=== PATIENT | female | born 1990 | race Caucasian/White ===

== ENCOUNTER → 2020-07-11 12:45 | Outpatient (CLI) | payer OTHER, SELFPAY ==
[2020-07-11 13:22] LABS: Add Manual Diff / Slide Review NO; Basophils Absolute Auto 0 /uL (0-100); Basophils Percent Auto 0.4 % (0-2); Eosinophils Absolute Auto 100 /uL (0-450); Eosinophils Percent Auto 2.2 % (2-4); Hematocrit 36.2 % (36-46); Lymphocytes Absolute Auto 2000 /uL (1100-4500); Lymphocytes Percent Auto 34.6 % (25-40); Mean Corpuscular Hemoglobin 28.9 PG (26-34); Mean Corpuscular Volume 87.5 fL (80-100); Monocytes Absolute Auto 300 /uL (0-900); Monocytes Percent Auto 5.1 % (3-14); Neutrophils Absolute Auto 3300 /uL (1500-7000); Neutrophils Percent Auto 57.7 % (50-75); Platelet Count 231 X10^3/uL (150-400); Red Blood Cell Count 4.13 X10^6/uL (4.0-5.2); Red Cell Distribution Width 12.9 % (11.6-14.8); White Blood Cell Count 5.8 X10^3/uL (4.5-11.0)
[2020-07-11 14:01] LABS: HEMOLYSIS < 15 (0-50); Iron 64 ug/dL (37-170)
[2020-07-11 14:08] LABS: Alanine Aminotransferase 11 IU/L (<35); Albumin 4.5 g/dL (3.5-5.0); Albumin Globulin Ratio 1.8 (1.0-2.8); Alkaline Phosphatase 45 U/L (38-126); Aspartate Aminotransferase 21 IU/L (14-36); BUN Creatinine Ratio 14.8 (6-22); Bilirubin Total 0.7 mg/dL (0.2-1.3); Blood Urea Nitrogen 19 mg/dL (7-17); Calcium 9.1 mg/dL (8.4-10.2); Carbon Dioxide 25 mmol/L (22-32); Chloride 104 mmol/L (98-107); Estimated Glomerular Filt Rate 48.3 mL/min (>60); Globulin 2.5 g/dL (1.7-4.1); Glucose 88 mg/dL (70-100); HEMOLYSIS < 15 (0-50); Potassium 3.9 mmol/L (3.4-5.1); Sodium 138 mmol/L (137-145)
[2020-07-11 14:13] LABS: Percent Iron Saturation 21 % (15-50); Total Iron Binding Capacity 304 ug/dL (265-497); Transferrin 228 mg/dL (206-381)
[2020-07-11 14:36] LABS: TSH w/ Reflex to FT4 1.04 uIU/mL (0.47-4.68)
[2020-07-11 15:04] LABS: Vitamin D 25 Hydroxy (D3) 35.9 ng/mL (30.0-100.0)
== END ==
PROVIDERS: PCP Family Medicine; Referring Provider Family Medicine; Visit Provider Family Medicine
DX: H53.9 Unspecified visual disturbance (principal); R00.0 Tachycardia, unspecified; R00.1 Bradycardia, unspecified; R53.83 Other fatigue; Z86.2 Personal history of diseases of the blood and blood-forming organs and certain disorders involving the immune mechanism
CPT/HCPCS: 36415; 80053; 82306; 83540; 83550; 84443; 85025

== ENCOUNTER 2020-07-13 14:50 | Emergency (ER) | payer OTHER, SELFPAY ==
[2020-07-13 14:53] VITALS: BP 102/71; PULSE 74; RESP 20; TEMP 36.4; O2SAT 100
[2020-07-13 17:04] VITALS: PULSE 50; O2SAT 100
[2020-07-13] MEDS: SODIUM CHLORIDE 0.9% 1,000 ML 1000 ML IV (17:08)
--- NOTE | 2020-07-13 17:12 | ED_ITS ---
HPI - Recheck/Abnormal Lab/Rx <MARYLU Vega - Last Filed: 07/14/20 00:08> General Chief Complaint: Recheck/Abnormal Lab/Rx Stated Complaint: kidney issues Time Seen by Provider: 07/13/20 16:43 Source: patient Mode of arrival: Ambulatory Limitations: no limitations History of Present Illness HPI narrative: This is a 30 year female, nonsmoker, who has history of AV jose miguel reentry tachycardia presents to ED with chief complain of not feeling well for last 2 weeks. Patient reports she had cross country travel from [place] to [place] about a month ago with her family for relocation. She has been having persistent headaches not effectively managed with taking Tylenol, nausea without vomiting, feeling sweaty, leg muscle discomfort, decreased urine output despite she drinks about 100 oz of water daily. Patient denies fever, chills, other urinary symptoms such as urgency, frequency, dysuria. Patient voids about 3 times a day with normal amount. Patient also reports feeling bloated in her abdomen and some discomfort in bilateral lateral abdomen, light sensitivity. Patient also noticed increase in swelling in her fingers and difficulty in removing a ring. She had set up primary care physician with Dr. Grey and requested blood test due to ongoing symptoms and was informed kidney issues possibly from dehydration. Patient recently feels more frequent palpitations and had about 30 minutes duration of chest discomfort in the center about a week ago. Patient denies fainting symptoms or syncope. Patient denies known exposure to COVID-19 illness. Patient is in process of finding cytometry technologist for existing cardiac conditions. Patient had unsuccessful cardiac ablation surgery in the past and usually has been experiencing bradycardia with slight hypotension and is not currently taking medications. Related Data Home Medications Medication Instructions Recorded Confirmed No Known Home Medications 07/14/20 07/14/20 Allergies Allergy/AdvReac Type Severity Reaction Status Date / Time amoxicillin [From Augmentin] Allergy Rash Verified 07/14/20 12:02 clavulanic acid Allergy Rash Verified 07/14/20 12:02 [From Augmentin] Review of Systems <MARYLU Vega - Last Filed: 07/14/20 00:08> Review of Systems Narrative: General: Denies fever, chills, fatigue, malaise, sweats. HEENT: Denies sinus pain, ear pain, sore throat, difficulty swallowing, dizziness. Respiratory: Denies dyspnea, cough, wheezing, hemoptysis, sputum. Cardiovascular: See HPI Gastrointestinal: See HPI : See HPI Musculoskeletal: Denies weakness, joint pain or bony pain. Skin: Denies rash, skin lesions, or other. Neurologic: Denies weakness, headache, numbness, change in speech, confusion, seizures, incoordination. Psychiatric: No concerning psychosocial issues. 12-point review of systems is negative except for those stated above. Patient History <MARYLU Vega - Last Filed: 07/14/20 00:08> Medical History (Updated 07/14/20 @ 00:02 by MARYLU Vega) AVNRT (AV jose miguel re-entry tachycardia) (Acute) Bradycardia (Acute) Preeclampsia (Acute) Surgical History (Updated 07/14/20 @ 00:02 by MARYLU Vega) History of cardiac radiofrequency ablation (Acute) Social History marital status: household members: spouse and children (3 BOYS ) Smoking Status: Never smoker alcohol intake: current (ON OCCASION ) substance use type: does not use Smoking Status: Never smoker Substance Use Type: does not use Exam <MARYLU Vega - Last Filed: 07/14/20 00:08> Narrative Exam Narrative: GEN: Alert, oriented x 3, well appearing and nourished, and in no acute distress. Head: Normal cephalic, atraumatic. No scalp or temporal tenderness, palpable mass or rash. EYES: Pupils are equal, round, and reactive to light and accommodation. Extraocular muscles are intact bilaterally. There is no subconjunctival hemorr w[place], exudate and sclera non-icteric. ENT: Hearing grossly intact. Nose without bleeding, purulent discharge or deviation. Facial sinuses nontender to palpate. Mucous membrane moist, no mucosal lesion. Throat without erythema, tonsillar hypertrophy or exudate. Uvula in midline, airway patent. Neck: Trachea in midline. No JVD, non-tender without lymphadenopathy. No masses or thyroid megaly. Supple, non-tender and no meningeal signs. CARDIAC: Normal regular Willi rate and rhythm without murmurs, gallops, or rubs. No chest wall tenderness. No peripheral edema, cyanosis or pallor. Capillary refill is less than 2 seconds. RESPIRATORY: Lungs are clear to auscultate bilaterally. No cough, wheezes, rales, or rhonchi. No stridor, respiratory distress, increase work of breathing, or accessary muscle used. ABD: Abdomen soft, nontender and non-distended. No guarding or rebound t enderness to palpate. Bowel sounds are normal in all 4 quadrants. There is no palpable masses or organomegaly. EXT: Full painless ROM of all extremities with no loss of sensation, strength, effusion or edema. SKIN: Warm, dry, normal color for patient. No erythema, lesions or rash over visible areas. BACK: Nontender without deformity or crepitance. No flank tenderness. NEUROLOGICAL: Alert and oriented to place, time and person. Sensation and motor function intact bilaterally. No facial droops, dysphasia. PSYCHIATRIC: Good judgement and reason, without hallucinations, abnormal affect or abnormal behaviors during the examination. Patient is not suicidal. Initial Vital Signs Initial Vital Signs: Vital Signs Temperature 97.5 F L 07/13/20 14:53 Pulse Rate 74 07/13/20 14:53 Respiratory Rate 07/13/20 14:53 Blood Pressure 102/71 07/13/20 14:53 Pulse Oximetry 100 07/13/20 14:53 <Mat Shore MD - Last Filed: 07/19/20 03:50> Initial Vital Signs Initial Vital Signs: Vital Signs Temperature 97.5 F L 07/13/20 14:53 Pulse Rate 74 07/13/20 14:53 Respiratory Rate 07/13/20 14:53 Blood Pressure 102/71 07/13/20 14:53 Pulse Oximetry 100 07/13/20 14:53 Scores <MARYLU Vega - Last Filed: 07/14/20 00:08> GCS [place] coma scale eye opening: Spontaneous [place] coma scale verbal response: Orientated Siri coma scale motor response: Obey commands Siri coma scale total score: 15 Course <MARYLU Vega - Last Filed: 07/14/20 00:08> Orders Ordered: Discontinued Medications Sodium Chloride (Normal Saline 0.9%) 1,000 mls @ 1,000 mls/hr IV BOLUS ONE Stop: 07/13/20 17:37 Last Infusion: 07/13/20 18:21 Dose: 0 mls/hr Documented by: Admin: 07/13/20 17:08 Dose: 1,000 mls/hr Documented by: DIOR Ketorolac Tromethamine (Toradol) 15 mg IV NOW ONE Stop: 07/13/20 17:46 Last Admin: 07/13/20 17:52 Dose: 15 mg Documented by: DIOR Ondansetron HCl (Zofran) 4 mg IV NOW ONE Stop: 07/13/20 17:46 Last Admin: 07/13/20 17:52 Dose: 4 mg Documented by: DIOR Vital Signs Vital signs: Vital Signs - 8 hr 07/13/20 17:04 07/13/20 17:15 07/13/20 17:30 Pulse Rate 50 L 50 L 60 Respiratory Rate Blood Pressure Pulse Oximetry 100 100 100 07/13/20 18:45 Pulse Rate 50 L Respiratory Rate 15 Blood Pressure 100/40 L Pulse Oximetry <Mat Shore MD - Last Filed: 07/19/20 03:50> Orders Ordered: Discontinued Medications Sodium Chloride (Normal Saline 0.9%) 1,000 mls @ 1,000 mls/hr IV BOLUS ONE Stop: 07/13/20 17:37 Last Infusion: 07/13/20 18:21 Dose: 0 mls/hr Documented by: Admin: 07/13/20 17:08 Dose: 1,000 mls/hr Documented by: DIOR Ketorolac Tromethamine (Toradol) 15 mg IV NOW ONE Stop: 07/13/20 17:46 Last Admin: 07/13/20 17:52 Dose: 15 mg Documented by: DIOR Ondansetron HCl (Zofran) 4 mg IV NOW ONE Stop: 07/13/20 17:46 Last Admin: 07/13/20 17:52 Dose: 4 mg Documented by: DIOR Vital Signs Vital signs: Vital Signs - 8 hr 07/13/20 17:04 07/13/20 17:15 07/13/20 17:30 Pulse Rate 50 L 50 L 60 Respiratory Rate Blood Pressure Pulse Oximetry 100 100 100 07/13/20 18:45 Pulse Rate 50 L Respiratory Rate 15 Blood Pressure 100/40 L Pulse Oximetry MDM - Recheck/Abnormal Lab/Rx <MARYLU Vega - Last Filed: 07/14/20 00:08> Differential Diagnosis Differential diagnosis: Likely other (decreased renal function, hypothyroidism, atypical chest pain, meningitis, headaches, covid 19, clustered headaches, anemia, abnormal electrolytes) Medical Records Attestation: I reviewed the patient's medical records. Lab Data Attestation: I reviewed the patient's lab results. Result diagrams: 07/13/20 16:57 07/13/20 16:57 Labs: Lab Results 07/13/20 07/13/20 07/13/20 Range/Units 16:57 16:57 16:57 WBC 6.3 (4.5-11.0) X10^3/uL RBC 4.20 (4.0-5.2) X10^6/uL Hgb 12.3 (12.0-16.0) g/dL Hct 37.0 (36-46) % MCV 88.1 (80-100) fL MCH 29.3 (26-34) PG MCHC 33.3 (30-36) % RDW 13.1 (11.6-14.8) % Plt Count 228 (150-400) X10^3/uL Neut % (Auto) 52.2 (50-75) % Lymph % (Auto) 38.2 (25-40) % [place] % (Auto) 6.6 (3-14) % Eos % (Auto) 2.6 (2-4) % Baso % (Auto) 0.4 (0-2) % Neut # (Auto) 3300 (0590-7360) /uL Lymph # (Auto) 2400 (6573-4541) /uL [place] # (Auto) 400 (0-900) /uL Eos # (Auto) 200 (0-450) /uL Baso # (Auto) 0 (0-100) /uL Sodium 137 (137-145) mmol/L Potassium 5.6 H D (3.4-5.1) mmol/L Chloride 106 (98-107) mmol/L Carbon Dioxide 23 (22-32) mmol/L BUN 16 (7-17) mg/dL Creatinine 0.66 (0.52-1.04) mg/dL Estimated GFR > 60.0 (>60) mL/min BUN/Creatinine Ratio 24.2 H (6-22) Glucose 82 (70-100) mg/dL Lactate (0.7-2.1) mmol/L Calcium 9.0 (8.4-10.2) mg/dL Total Bilirubin 0.8 (0.2-1.3) mg/dL AST 34 (14-36) IU/L ALT 11 (<35) IU/L Alkaline Phosphatase 45 (38-126) U/L Total Creatine Kinase (30-135) U/L CK-MB (CK-2) CK-MB (CK-2) Rel Index Troponin I (0.01-0.034) ng/mL Total Protein 7.7 (6.3-8.2) g/dL Albumin 4.7 (3.5-5.0) g/dL Globulin 3.0 (1.7-4.1) g/dL Albumin/Globulin Ratio 1.6 (1.0-2.8) Lipase 196 (23-300) U/L Procalcitonin < 0.05 (<0.5) ng/mL COVID-19 PCR (Not Detected) 07/13/20 07/13/20 07/13/20 Range/Units 16:57 17:30 19:03 WBC (4.5-11.0) X10^3/uL RBC (4.0-5.2) X10^6/uL Hgb (12.0-16.0) g/dL Hct (36-46) % MCV (80-100) fL MCH (26-34) PG MCHC (30-36) % RDW (11.6-14.8) % Plt Count (150-400) X10^3/uL Neut % (Auto) (50-75) % Lymph % (Auto) (25-40) % [place] % (Auto) (3-14) % Eos % (Auto) (2-4) % Baso % (Auto) (0-2) % Neut # (Auto) (6491-5254) /uL Lymph # (Auto) (6824-9093) /uL [place] # (Auto) (0-900) /uL Eos # (Auto) (0-450) /uL Baso # (Auto) (0-100) /uL Sodium (137-145) mmol/L Potassium (3.4-5.1) mmol/L Chloride (98-107) mmol/L Carbon Dioxide (22-32) mmol/L BUN (7-17) mg/dL Creatinine (0.52-1.04) mg/dL Estimated GFR (>60) mL/min BUN/Creatinine Ratio (6-22) Glucose (70-100) mg/dL Lactate 0.6 L (0.7-2.1) mmol/L Calcium (8.4-10.2) mg/dL Total Bilirubin (0.2-1.3) mg/dL AST (14-36) IU/L ALT (<35) IU/L Alkaline Phosphatase (38-126) U/L Total Creatine Kinase 72 (30-135) U/L CK-MB (CK-2) TNP CK-MB (CK-2) Rel Index TNP Troponin I < 0.012 (0.01-0.034) ng/mL Total Protein (6.3-8.2) g/dL Albumin (3.5-5.0) g/dL Globulin (1.7-4.1) g/dL Albumin/Globulin Ratio (1.0-2.8) Lipase (23-300) U/L Procalcitonin (<0.5) ng/mL COVID-19 PCR Not detected (Not Detected) Point of Care Testing Test Results Negative Urine Dip Bedside Urine Glucose Negative Bedside Urine Bilirubin - Negative Bedside Urine Ketone - Negative Urine Specific [place] 1.010 Bedside Urine Occult Blood - Negative Bedside Urine pH 7.5 Bedside Urine Protein - Negative Bedside Urine Urobilinogen - Negative Bedside Urine Nitrite - Negative Bedside Urine Leukocytes - Negative Esterase Imaging Data US-Renal: Radiologist's Impression: [place] [id number] Ultrasound Report Signed Patient: Majo Gil TMR#: [id number] : 1990Acct:[id number] Age/Sex: 30 / FDate of Service: 07/13/20 Loc: ED Accession Number: [id number] Procedure: US renal complete Ordering Provider: Colton Cochran PROCEDURE: US RENAL COMPLETE INDICATIONS: INCREASED KIDNEY FUNCTION TEST / DEHYDRATED TECHNIQUE: Real-time scanning was performed of the kidneys and bladder, with image docume ntation. COMPARISON: None. FINDINGS: Kidneys: Kidneys are normal in size. Right kidney measures 10.5 cm long; left kidney measures 12.4 cm long. Right renal cortical thickness is 1.3 cm; left renal cortical thickness is 1.7 cm. Renal cortical echotexture is normal. No hydronephrosis or nephrolithiasis. No suspicious solid mass lesions. Bladder: Pre-void bladder volume is 61 mL. Post-void residual is 0 mL. Pre- void images demonstrate no intraluminal masses or stones. On pre-void images, both ureteral jets are noted with color Doppler interrogation. (Of note, ureteral jets may not be detectable in up to 25% of cases due to insufficient differences in specific gravity between ureteral and bladder urine). Miscellaneous: No free pelvic fluid. IMPRESSION: Normal renal ultrasound exam. Of note, the right kidney is slight smaller than the left kidney. Dictated by: Jim Nguyen M.D. on 07/13/2020 at 17:29 Approved by: Jim Nguyen M.D. on 07/13/2020 at 17:39 ECG Data Attestation: I personally reviewed and interpreted this ECG as follows: Prior ECG tracings: not available for review Interpretation: Sinus bradycardia rate at 52. NOrmal Mitchell. CA interval 122, QRS duration 88, QT/QTC 462/[address] changes MDM Narrative Medical decision making narrative: This is a pleasant 30 year old female who is new in town after relocated to [place] from [place] about a month ago presented to ED to follow up on and normal renal function test with feeling fatigue and re curring headache. Patient has initial appointment with Dr. Grey and had lab tests two days ago in preparation and found decreased renal function test with elevated Cr level of 1.28 and BUN of 19 with eGFR of 48.3. TSH was within normal (1.04) with stable H&H of 12.0/36.2. Patient also reports more frequent palpitation and had one episode of central chest discomfort which lasted for 30 minutes about a week ago. EKG shows normal sinus Willi rhythm rate at [address] changes. Cardiac enzymes were negative. Given the chest pain was about one week ago, only one set of cardiac enzyme test was obtained at this time. No signs of anemia and H/H today is 4.2/12.3. No leukocytosis or elevation in lactate or procalcitonin. Chemistry test was repeated and shows normal kidney function test today. Creatinine level of 0.66 with BUN of 16 and eGFR of >60.0. Lab called to inform that lab specimen is hemolysed and elevated K level of 5.6. K that was drawn 2 days ago was 3.9 which was normal. Since it was a difficult IV start and blood drawn, repeat chemistry test was not done. Urine test shows negative test without signs of infection. US-Renal test result without acute findings such as hydronephrosis or nephrolithiasis or mass lesions. Patient was medicated with normal saline 1 L IV fluid with IV Zofran and Toradol for headache which has not improved much. Patient denies increase in stress and states has been sleeping adequately despite having 3 young children and recent relocation to [place] from [place]. Patient denies history of chronic or migraine headaches. Patient's physical exam is not consistent with meningitis. Patient is afebrile with mild hypotension and bradycardia (the patient's baseline). Covid 19 swab was obtained and sent out for routine testing. Findings were discussed with patient and patient was relieved to find out normal kidney function test. Patient advised to get adequate rest and hydration. Advised to take [id number] Tylenol as needed for discomfort. Patient declined anti nausea medication to go home with. Return precautions were discussed with patient and advised to follow up with Dr. Grey as scheduled. Patient advised continue with Covid 19 precautions and will receive a phone call with test results within next few days. Patient verbalized understanding and agreement with the treatment plan. <Mat Shore MD - Last Filed: 07/19/20 03:50> Lab Data Labs: Lab Results 07/13/20 07/13/20 07/13/20 Range/Units 16:57 16:57 16:57 WBC 6.3 (4.5-11.0) X10^3/uL RBC 4.20 (4.0-5.2) X10^6/uL Hgb 12.3 (12.0-16.0) g/dL Hct 37.0 (36-46) % MCV 88.1 (80-100) fL MCH 29.3 (26-34) PG MCHC 33.3 (30-36) % RDW 13.1 (11.6-14.8) % Plt Count 228 (150-400) X10^3/uL Neut % (Auto) 52.2 (50-75) % Lymph % (Auto) 38.2 (25-40) % [place] % (Auto) 6.6 (3-14) % Eos % (Auto) 2.6 (2-4) % Baso % (Auto) 0.4 (0-2) % Neut # (Auto) 3300 (8329-5633) /uL Lymph # (Auto) 2400 (2610-8610) /uL [place] # (Auto) 400 (0-900) /uL Eos # (Auto) 200 (0-450) /uL Baso # (Auto) 0 (0-100) /uL Sodium 137 (137-145) mmol/L Potassium 5.6 H D (3.4-5.1) mmol/L Chloride 106 (98-107) mmol/L Carbon Dioxide 23 (22-32) mmol/L BUN 16 (7-17) mg/dL Creatinine 0.66 (0.52-1.04) mg/dL Estimated GFR > 60.0 (>60) mL/min BUN/Creatinine Ratio 24.2 H (6-22) Glucose 82 (70-100) mg/dL Lactate (0.7-2.1) mmol/L Calcium 9.0 (8.4-10.2) mg/dL Total Bilirubin 0.8 (0.2-1.3) mg/dL AST 34 (14-36) IU/L ALT 11 (<35) IU/L Alkaline Phosphatase 45 (38-126) U/L Total Creatine Kinase (30-135) U/L CK-MB (CK-2) CK-MB (CK-2) Rel Index Troponin I (0.01-0.034) ng/mL Total Protein 7.7 (6.3-8.2) g/dL Albumin 4.7 (3.5-5.0) g/dL Globulin 3.0 (1.7-4.1) g/dL Albumin/Globulin Ratio 1.6 (1.0-2.8) Lipase 196 (23-300) U/L Procalcitonin < 0.05 (<0.5) ng/mL COVID-19 PCR (Not Detected) 07/13/20 07/13/20 07/13/20 Range/Units 16:57 17:30 19:03 WBC (4.5-11.0) X10^3/uL RBC (4.0-5.2) X10^6/uL Hgb (12.0-16.0) g/dL Hct (36-46) % MCV (80-100) fL MCH (26-34) PG MCHC (30-36) % RDW (11.6-14.8) % Plt Count (150-400) X10^3/uL Neut % (Auto) (50-75) % Lymph % (Auto) (25-40) % [place] % (Auto) (3-14) % Eos % (Auto) (2-4) % Baso % (Auto) (0-2) % Neut # (Auto) (8887-7302) /uL Lymph # (Auto) (5700-0554) /uL [place] # (Auto) (0-900) /uL Eos # (Auto) (0-450) /uL Baso # (Auto) (0-100) /uL Sodium (137-145) mmol/L Potassium (3.4-5.1) mmol/L Chloride (98-107) mmol/L Carbon Dioxide (22-32) mmol/L BUN (7-17) mg/dL Creatinine (0.52-1.04) mg/dL Estimated GFR (>60) mL/min BUN/Creatinine Ratio (6-22) Glucose (70-100) mg/dL Lactate 0.6 L (0.7-2.1) mmol/L Calcium (8.4-10.2) mg/dL Total Bilirubin (0.2-1.3) mg/dL AST (14-36) IU/L ALT (<35) IU/L Alkaline Phosphatase (38-126) U/L Total Creatine Kinase 72 (30-135) U/L CK-MB (CK-2) TNP CK-MB (CK-2) Rel Index TNP Troponin I < 0.012 (0.01-0.034) ng/mL Total Protein (6.3-8.2) g/dL Albumin (3.5-5.0) g/dL Globulin (1.7-4.1) g/dL Albumin/Globulin Ratio (1.0-2.8) Lipase (23-300) U/L Procalcitonin (<0.5) ng/mL COVID-19 PCR Not detected (Not Detected) Point of Care Testing Test Results Negative Urine Dip Bedside Urine Glucose Negative Bedside Urine Bilirubin - Negative Bedside Urine Ketone - Negative Urine Specific [place] 1.010 Bedside Urine Occult Blood - Negative Bedside Urine pH 7.5 Bedside Urine Protein - Negative Bedside Urine Urobilinogen - Negative Bedside Urine Nitrite - Negative Bedside Urine Leukocytes - Negative Esterase Discharge Plan Departure Patient Disposition: Home Clinical Impression: Abnormal renal function test Fatigue Qualifiers: Fatigue type: unspecified Qualified Code(s): R53.83 - Other fatigue Headache Qualifiers: Headache type: unspecified Headache chronicity pattern: unspecified pattern Intractability: not intractable Qualified Code(s): R51 - Headache Discharge Date/Time: 07/13/20 19:20 Instructions: DI for Fatigue, DI for Headache Activity Restrictions/Additional Instructions: You have been diagnosed with [fatigue, headache, recheck in kidney function test which came back normal. Blood tests, EKG, urine test are assuring. Today's renal function test is within normal limits. Renal US test shows no acute findings. Covid 19 swab has been sent out and you will receive a phone call from us with the result next 2-5 days. Until then please continue with the Covid 19 precautions.]. What to do: *Take your medications as directed. You can take [id number] Tylenol and or Motrin as needed for discomfort. Continue to Hydrate adequately. *Follow up with your primary care provider in 2-3 days, call for an appointment. Let them know you were seen in the ED and that we asked you to be seen in follow up. *Return to ED if you have any new, worsening, or concerning symptoms, such as [chest pain, breathing difficulty, unable to tolerate fluids, unusual rash, neck tightness, unusual behavior, fever, urinary symptoms or any acute concerns]. Prescriptions: No Action No Known Home Medications RF: 0 Referrals: Noreen Grey MD [Primary Care Provider] - <Mat Shore MD - Last Filed: 07/19/20 03:50> Cosign ED Attending Bin[place] Attestation: I was immediately available in the department for consultation. This documentation has been reviewed and I agree with assessment and plan. Supervised by Mat Shore MD
[2020-07-13 17:15] VITALS: PULSE 50; O2SAT 100
[2020-07-13 17:19] LABS: Add Manual Diff / Slide Review NO; Basophils Absolute Auto 0 /uL (0-100); Basophils Percent Auto 0.4 % (0-2); Eosinophils Absolute Auto 200 /uL (0-450); Eosinophils Percent Auto 2.6 % (2-4); Hemoglobin 12.3 g/dL (12.0-16.0); Lymphocytes Absolute Auto 2400 /uL (1100-4500); Lymphocytes Percent Auto 38.2 % (25-40); Mean Corpuscular HGB Conc 33.3 % (30-36); Mean Corpuscular Hemoglobin 29.3 PG (26-34); Mean Corpuscular Volume 88.1 fL (80-100); Monocytes Absolute Auto 400 /uL (0-900); Monocytes Percent Auto 6.6 % (3-14); Neutrophils Absolute Auto 3300 /uL (1500-7000); Neutrophils Percent Auto 52.2 % (50-75); Platelet Count 228 X10^3/uL (150-400); Red Cell Distribution Width 13.1 % (11.6-14.8); White Blood Cell Count 6.3 X10^3/uL (4.5-11.0)
[2020-07-13 17:24] LABS: Alanine Aminotransferase 11 IU/L (<35); Albumin 4.7 g/dL (3.5-5.0); Albumin Globulin Ratio 1.6 (1.0-2.8); Alkaline Phosphatase 45 U/L (38-126); Aspartate Aminotransferase 34 IU/L (14-36); BUN Creatinine Ratio 24.2 (6-22); Bilirubin Total 0.8 mg/dL (0.2-1.3); Blood Urea Nitrogen 16 mg/dL (7-17); Carbon Dioxide 23 mmol/L (22-32); Chloride 106 mmol/L (98-107); Estimated Glomerular Filt Rate > 60.0 mL/min (>60); Glucose 82 mg/dL (70-100); Lipase 196 U/L (23-300); Sodium 137 mmol/L (137-145); Total Protein 7.7 g/dL (6.3-8.2)
[2020-07-13 17:30] VITALS: PULSE 60; O2SAT 100
[2020-07-13 17:31] LABS: HEMOLYSIS 118 (0-50); Potassium 5.6 mmol/L (3.4-5.1)
[2020-07-13 17:44] LABS: Procalcitonin < 0.05 ng/mL (<0.5)
[2020-07-13] MEDS: KETOROLAC 60 MG/2 ML VIAL 15 MG IV (17:52)
[2020-07-13] MEDS: ONDANSETRON 4 MG/2 ML INJ IV (17:52)
[2020-07-13 17:57] LABS: Creatine Kinase 72 U/L (30-135)
[2020-07-13 17:58] LABS: Lactate (Lactic Acid) 0.6 mmol/L (0.7-2.1)
[2020-07-13 18:09] LABS: Troponin I < 0.012 ng/mL (0.01-0.034)
[2020-07-13 18:45] VITALS: BP 100/40; PULSE 50; RESP 15
[2020-07-15 18:36] LABS: COVID19 Sendout Not Detected (Not Detected)
== END 2020-07-13 19:20 | disposition home or self-care (01) ==
PROVIDERS: Emergency Provider Nurse Practitioner Family; PCP Family Medicine
DX: R94.4 Abnormal results of kidney function studies (principal); R53.83 Other fatigue; R51 Headache; R10.9 Unspecified abdominal pain
CPT/HCPCS: 36415; 76770; 80053; 81003; 81025; 82550; 83605; 83690; 84145; 84484; 85025; 87635; 93005; 93010; 96361; 96374; 96375; 99284; J1885; J2405

== ENCOUNTER → 2020-07-25 14:49 | Outpatient (CLI) | payer OTHER, SELFPAY ==
--- NOTE | 2020-07-25 14:50 | DI.US.S_ITS ---
PROCEDURE: US PELVIC COMPLETE INDICATIONS: vaginal bleeding TECHNIQUE: Real-time scanning was performed of the pelvic organs, with image documentation. Additional endovaginal scanning was necessary due to incomplete visualization of the adnexal and endometrial structures by transabdominal scanning. COMPARISON: [facility], , RENAL COMPLETE, 07/13/2020, 18:02. FINDINGS: Transabdominal scanning: Limited scanning through the kidneys shows no hydronephrosis. Trace free fluid. Endovaginal scanning: Uterus: Uterus is retroverted and normal in size at 9.2 x 6.9 x 5 cm. No mass. The endometrium measures 9.8 mm in combined thickness. Ovaries: Within normal limits. Blood flow seen in both ovaries. Small ovarian follicles. Right ovary measuring 5.2 x 1.9 x 1.7 cm. Left ovary measures 4.5 x 2.1 x 2.1 cm. IMPRESSION: 1. Endometrial thickness measuring at 10 mm within normal limits. 2. Normal sonographic appearance of the ovaries. Small volume of free fluid in the pelvic cul-de-sac. 3. No uterine mass. Retroverted uterus. Dictated by: Amando Spence M.D. on 07/25/2020 at 15:25 Approved by: Amando Spence M.D. on 07/25/2020 at 15:30
== END ==
PROVIDERS: PCP Family Medicine; Referring Provider Family Medicine; Visit Provider Physician Assistant
DX: N92.3 Ovulation bleeding (principal); N85.4 Malposition of uterus
CPT/HCPCS: 76856

== ENCOUNTER → 2021-03-02 09:31 | Outpatient (CLI) | payer OTHER, SELFPAY ==
--- NOTE | 2021-03-02 09:33 | DI.US.S_ITS ---
LIMITED ULTRASOUND OF RIGHT BREAST: 03/02/2021 CLINICAL: Palpable right breast lump x 2. Comparison is made to exam dated: 03/02/2021 [facility]. Real-time ultrasound of the right breast 6 o'clock region was performed on the area of interest. No discrete cystic or solid mass lesion identified in the area of palpable abnormality. IMPRESSION: NEGATIVE There is no sonographic evidence of malignancy. There is no abnormality seen in the right breast to correspond with the palpable abnormality at 6 o'clock, however, clinical followup is recommended. Screening mammography is recommended at age 40. This exam was interpreted at Station ID: [id number]. Electronically Signed By: Eliecer Rodriguez M.D. ddp/:03/02/2021 10:49:31 letter sent: Clinical Evaluation Ultrasound BI-RADS: 1 Negative
--- NOTE | 2021-03-02 09:33 | DI.MG.S_ITS ---
BILATERAL DIGITAL DIAGNOSTIC MAMMOGRAM 3D/2D: 03/02/2021 CLINICAL: Baseline exam. Right breast lumps. No prior exams were available for comparison. The tissue of both breasts is heterogeneously dense. This may lower the sensitivity of mammography. No significant masses, calcifications, or other findings are seen in either breast. IMPRESSION: INCOMPLETE: NEEDS ADDITIONAL IMAGING EVALUATION There is no abnormality seen in the right breast to correspond with the palpable abnormality at 6 o'clock, however, ultrasound is recommended. Ultrasound will be performed immediately following the current exam. This exam was interpreted at Station ID: [id number]. NOTE: For mammograms, a report in lay terms will be sent to the patient. Approximately 15% of breast malignancies will not be visualized mammographically. In the management of a palpable breast mass, a negative mammogram must not discourage biopsy of a clinically suspicious lesion. Electronically Signed By: Eliecer Rodriguez M.D. ddp/:03/02/2021 10:10:55 ACR BI-RADS Category 0: Incomplete [id number]
== END ==
PROVIDERS: Family Provider Family Medicine; PCP Family Medicine; Referring Provider Family Medicine; Visit Provider Family Medicine
DX: N63.10 Unspecified lump in the right breast, unspecified quadrant (principal); N64.4 Mastodynia; R92.8 Other abnormal and inconclusive findings on diagnostic imaging of breast
CPT/HCPCS: 76642; 77066; G0279

== ENCOUNTER 2021-04-19 12:00 | Outpatient (RCR) | payer OTHER, SELFPAY ==
--- NOTE | 2020-09-08 15:57 | PT.OIE ---
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) Bradycardia (Acute) Preeclampsia (Acute) Past Surgical History (Last Updated 07/14/20 @ 00:02 by MARYLU Vega) History of cardiac radiofrequency ablation (Acute) Visit Care Team Role Provider Type Noreen Grey MD Attending Provider Physician Family Provider Primary Care Provider Referring Provider Specialty: [facility] Practice Address: [address] [place] [address], [facility] Email: [email or web address] Physical Therapy Initial Evaluation PT-OP-A Visit Information Start: 09/08/20 08:59 Freq: Status: Active Protocol: Document 09/08/20 15:10 [facility] (Rec: 09/08/20 15:49 [facility] [email or web address]) Out-Patient Physical Therapy Visit Information Visit Information Visit Type Initial Evaluation Visit Start Time 09:00 Visit Stop Time 09:45 Total Visit Minutes 45 Visit Number 1 Evaluation Information Evaluation Date 09/08/20 PT-OP-B Current Condition Start: 09/08/20 08:59 Freq: Status: Active Protocol: Document 09/08/20 15:10 [facility] (Rec: 09/08/20 15:49 [facility] [email or web address]) Current Condition History of Current Condition Onset Date 2016 Current Complaints abdominal seperation ( diastasis recti) following 3 pregnancies History of Current Condition Majo is a 30 year old female who seeks PT consult due to abdominal seperation and weakness from her three pregnancies. She had 3 births in 28 months. Her youngest will be 1 year old in September 2020. She notes she wants to work out but when she tries to progress her exercises she has felt a pulling sensation across her abdominal wall. She feels she has limits to the exercises she can perform. Majo denies any symptoms of bladder leakage but does note she will experience pelvic pressure and heaviness with menstruation. 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 Jenny states she has to be careful with any exercises with her head below her heart. Treatment Goals Patient/Caregiver Goals Markell goals include improving core strength to properly lift her children uo and to be able to continue with a exercise routine. She would like to improve her abdominal strength without feeling abdominal pain and straining. Specifically she would like to be able to follow the barre blend routine from [employer]. Current Functional Impairments (Reported) Functional Limitations- Recreation/ difficulty with lifting Hobbies activites, unable to continue her exercise routine due to abdominal straining and pain. PT-OP-I Pelvic Floor Start: 09/08/20 08:59 Freq: Status: Active Protocol: Document 09/08/20 15:10 AM[facility] (Rec: 09/08/20 15:49 [facility] [email or web address]) Pelvic Floor Assessment Comments Pelvic Floor Comments The pelvic floor was assessed externally today and Majo has difficulty sustaining a pelvic floor contraction for more than a few seconds. PT-OP-J Posture/Palpation/Skin Start: 09/08/20 08:59 Freq: Status: Active Protocol: Document 09/08/20 15:10 [facility] (Rec: 09/08/20 15:49 [facility] [email or web address]) Palpation Assessment Location abdominal wall midline Palpation Location linea alba palpation for diastasis recti Palpation Details There is a 3 finger width diastasis seperation proximal to the umbilicus and 2 finger width seperation distal to the umbilicus. There is minimal bulging with trunk flexion and no hard end feel. PT-OP-L Special Tests Start: 09/08/20 08:59 Freq: Status: Active Protocol: Document 09/08/20 15:10 AM[facility] (Rec: 09/08/20 15:49 [facility] [email or web address]) Special Tests Other Special Tests Special Tests + ASLR test B for decreased TA activation PT-OP-M Strength Start: 09/08/20 15:50 Freq: Status: Active Protocol: Document 09/08/20 15:50 [facility] (Rec: 09/08/20 15:54 [facility] [email or web address]) Trunk Strength Trunk Manual Muscle Testing Core Stabilization poor core stabilization with decrease activation of the transverse abdominal wall and pelvic floor, 3 finger width seperation of the linea alba proximal to umbilicus and 2 finger width distal to umbilicus PT-OP-Q Treatments Start: 09/08/20 08:59 Freq: Status: Active Protocol: Document 09/08/20 15:50 AMH (Rec: 09/08/20 15:54 [facility] [email or web address]) Therapeutic Exercises Supine Exercises level 1 a lower abdominal stabilization Reps/Minutes x 10 reps 1 Supine Exercise Name Pelvic floor activation with a wedge under the pelvis to provide decompress Reps/Minutes 10 reps working up to 10 second hold time and 10 second relaxation Other Exercises quadruped TA facilitation Side bilateral Reps/Minutes x 10 reps PT-OP-T Assessment and Plan Start: 09/08/20 08:59 Freq: Status: Active Protocol: Document 09/08/20 15:10 AM[facility] (Rec: 09/08/20 15:49 [facility] [email or web address]) Physical Therapy Assessment Rehab Potential Rehabilitation Potential Good Evaluation Complexity Number of Personal Factors/Comorbidities 0 Number of Body Systems Impaired 1-2 Clinical Presentation at Evaluation Stable Impairments Impairments Activity Tolerance,Functional Activities,Strength,Tone Goals Decreased Pelvci floor endurance Impairment Decreased pelvic floor endurance Short Term Goal (STG) Majo is able to sustain a pelvic floor contraction for 10 seconds in supine STG Duration 4 weeks [employer] Goal (LTG) Majo is no longer c/o pelvic pressure and heaviness with menstruation. LTG Duration 8 weeks Majo is unable to progress her exercise routine at home due to abdominal pain and weakness Impairment Majo is unable to progress her exercise routine due to weakness, pain Short Term Goal (STG) Majo is able to perform a TA facilitation in supine with marches without her pelvis rocking from side to side STG Duration 4 weeks Skilled Nursing Goal (LTG) Majo is able to perform standing dynamic stabilization exericse without a abdominal bulge and without any abdominal pain. LTG Duration 8 weeks Decreased strength of the transerse abdominal muscle Impairment Decreased strength of the Transverse abdominal muscle with diastasis Short Term Goal (STG) Majo is able to facilitate her TA in quadruped and sustain a contraction x 10 seconds for 10 reps STG Duration 4 weeks Sk[employer] Maker Goal (LTG) Majo is able to demonstrate TA activation with sit-stand and with a squat to stand LTG Duration 8 weeks Assessment Summary Assessment Majo is a 30 year old female who presents to physical therapy today for chief complaints of abdominal weakness and seperation ( diastasis recti) She has been working on a exercise routine, specifically barre blend exercise program, and has not been able to progress due to a stretching pain sensation in her abdominal wall with core exercises. Majo has a history of 3 vaginal deliveries in a 28 month time frame. Her youngest baby will be a year old in September 2020. With examination today there is a 3 finger width seperate of the linea alba proximal to the umbilicus and a 2 finger width seperation distal to the umbilicus. She has a mild bulge with trunk flexion. I checked her pelvic floor externally today and Majo has difficulty sustaining a contraction for more than a few seconds. She has weakness of the Transverse abdominal muscle with +ASLR test B. It was difficult for Majo to facilitate her transverse abdominal muscle in supine so we tried her in quadruped and she did well with this. She was then able to find her TA in supine. Treatment for Majo will include Neuro muscular awareness of her Transverse abdominal muscle and pelvic floor, progressing to strengthening and dynamic lumbar stabilization. Treatment will also include proper body mechanics for lifting her babies and ADL's. She is a good candidate for PT Physical Therapy Plan Frequency and Duration Frequency of Treatment 1x/Week Duration of Treatment 8 Plan of Care Start Date 09/08/20 Plan of Care End Date 11/03/20 Therapeutic Interventions Therapeutic Interventions Home Exercise Program, Neuromuscular Re-education, Patient/Caregiver Education, Self-Care/Home Management, Therapeutic Exercises Next Visit Focus/Plan Next Note Type Treatment Note Next Visit Plan Review HEP given today and progress stabilization exercises as tolerated. Work on bracing with her TA with transitional movements.
--- NOTE | 2020-09-15 17:53 | PT.OTN ---
Current Diagnoses Separation of muscle (nontraumatic), other site (09/15/20) Muscle weakness (generalized) (09/15/20) Unspecified abdominal pain (09/15/20) Physical Therapy Treatment Note PT-OP-A Visit Information Start: 09/08/20 08:59 Freq: Status: Active Protocol: Document 09/15/20 13:46 AMH (Rec: 09/15/20 13:50 AMH [id number]) Out-Patient Physical Therapy Visit Information Visit Information Visit Type Treatment Note Visit Start Time 13:45 Visit Stop Time 14:30 Total Visit Minutes 45 Visit Number 2 PT-OP-B Current Condition Start: 09/08/20 08:59 Freq: Status: Active Protocol: Document 09/08/20 15:10 AMH (Rec: 09/08/20 15:49 AM[facility] [email or web address]) Current Condition History of Current Condition Onset Date 2016 Current Complaints abdominal seperation ( diastasis recti) following 3 pregnancies History of Current Condition Majo is a 30 year old female who seeks PT consult due to abdominal seperation and weakness from her three pregnancies. She had 3 births in 28 months. Her youngest will be 1 year old in September 2020. She notes she wants to work out but when she tries to progress her exercises she has felt a pulling sensation across her abdominal wall. She feels she has limits to the exercises she can perform. Majo denies any symptoms of bladder leakage but does note she will experience pelvic pressure and heaviness with menstruation. 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 Jenny states she has to be careful with any exercises with her head below her heart. Treatment Goals Patient/Caregiver Goals Markell goals include improving core strength to properly lift her children uo and to be able to continue with a exercise routine. She would like to improve her abdominal strength without feeling abdominal pain and straining. Specifically she would like to be able to follow the barre blend routine from [employer]. Current Functional Impairments (Reported) Functional Limitations- Recreation/ difficulty with lifting Hobbies activites, unable to continue her exercise routine due to abdominal straining and pain. PT-OP-C Subjective Start: 09/08/20 08:59 Freq: Status: Active Protocol: Document 09/15/20 13:46 AM[facility] (Rec: 09/15/20 13:50 [facility] [id number]) OP-PT Subjective Patient Comments Patient Comments has had difficulty with timing the TA on hands and knees with breathing. The kegels she did while she was driving. Majo reports she had lower abdominal soreness following the stabilization exercises PT-OP-I Pelvic Floor Start: 09/08/20 08:59 Freq: Status: Active Protocol: Document 09/08/20 15:10 AMH (Rec: 09/08/20 15:49 AM[facility] [email or web address]) Pelvic Floor Assessment Comments Pelvic Floor Comments The pelvic floor was assessed externally today and Majo has difficulty sustaining a pelvic floor contraction for more than a few seconds. PT-OP-J Posture/Palpation/Skin Start: 09/08/20 08:59 Freq: Status: Active Protocol: Document 09/08/20 15:10 AMH (Rec: 09/08/20 15:49 [facility] [email or web address]) Palpation Assessment Location abdominal wall midline Palpation Location linea alba palpation for diastasis recti Palpation Details There is a 3 finger width diastasis seperation proximal to the umbilicus and 2 finger width seperation distal to the umbilicus. There is minimal bulging with trunk flexion and no hard end feel. PT-OP-L Special Tests Start: 09/08/20 08:59 Freq: Status: Active Protocol: Document 09/08/20 15:10 AMH (Rec: 09/08/20 15:49 [facility] [email or web address]) Special Tests Other Special Tests Special Tests + ASLR test B for decreased TA activation PT-OP-M Strength Start: 09/08/20 15:50 Freq: Status: Active Protocol: Document 09/08/20 15:50 AMH (Rec: 09/08/20 15:54 AMH [email or web address]) Trunk Strength Trunk Manual Muscle Testing Core Stabilization poor core stabilization with decrease activation of the transverse abdominal wall and pelvic floor, 3 finger width seperation of the linea alba proximal to umbilicus and 2 finger width distal to umbilicus PT-OP-Q Treatments Start: 09/08/20 08:59 Freq: Status: Active Protocol: Document 09/15/20 17:25 AMH (Rec: 09/15/20 17:53 AMH [email or web address]) Therapeutic Exercises Supine Exercises ball squeeze with pelvic floor contraction Supine Exercise Name ball squeeze with pelvic floor contraction Reps/Minutes x 10 foam roll stretch chest nozzle worker Supine Exercise Name foam roll chest nozzle worker 4 Supine Exercise Name TA with heel slides Reps/Minutes x 10 reps 3 Supine Exercise Name TA with opposite arm and january 24 Supine Exercise Name TA with opposite arm lift overhead level 1 a lower abdominal stabilization Reps/Minutes x 10 reps 1 Supine Exercise Name Pelvic floor activation with a wedge under the pelvis to provide decompress Reps/Minutes 10 reps working up to 10 second hold time and 10 second relaxation Other Exercises 2 Other Exercise Name hip flexor stretch off the side of a bed 1 Other Exercise Name cat cow quadruped TA facilitation Side bilateral Reps/Minutes x 10 reps PT-OP-T Assessment and Plan Start: 09/08/20 08:59 Freq: Status: Active Protocol: Document 09/15/20 17:25 AMH (Rec: 09/15/20 17:53 AMH [email or web address]) Physical Therapy Assessment Assessment Summary Assessment Majo is tolerating treatment well and was able to stabilize with lower abdominal progression level 1 b, I worked on stretches for her low back first today and this seemed to help her find her core muscles Physical Therapy Plan Frequency and Duration Frequency of Treatment 1x/Week Duration of Treatment 8 Plan of Care Start Date 09/08/20 Plan of Care End Date 11/03/20 Next Visit Focus/Plan Next Note Type Treatment Note Next Visit Plan work on iliopsoasd flexibility and opening up the chest, continue to progress stability . Trial of EMG biofeedback next visit.
--- NOTE | 2020-09-22 17:54 | PT.OTN ---
Current Diagnoses Separation of muscle (nontraumatic), other site (09/22/20) Muscle weakness (generalized) (09/22/20) Unspecified abdominal pain (09/22/20) Physical Therapy Treatment Note PT-OP-A Visit Information Start: 09/08/20 08:59 Freq: Status: Active Protocol: Document 09/22/20 17:07 AMH (Rec: 09/22/20 17:07 AMH [id number]) Out-Patient Physical Therapy Visit Information Visit Information Visit Type Treatment Note Visit Start Time 16:00 Visit Stop Time 16:45 Total Visit Minutes 45 Visit Number 3 Evaluation Information Evaluation Date 09/08/20 PT-OP-B Current Condition Start: 09/08/20 08:59 Freq: Status: Active Protocol: Document 09/08/20 15:10 AMH (Rec: 09/08/20 15:49 AMH [email or web address]) Current Condition History of Current Condition Onset Date 2016 Current Complaints abdominal seperation ( diastasis recti) following 3 pregnancies History of Current Condition Majo is a 30 year old female who seeks PT consult due to abdominal seperation and weakness from her three pregnancies. She had 3 births in 28 months. Her youngest will be 1 year old in September 2020. She notes she wants to work out but when she tries to progress her exercises she has felt a pulling sensation across her abdominal wall. She feels she has limits to the exercises she can perform. Majo denies any symptoms of bladder leakage but does note she will experience pelvic pressure and heaviness with menstruation. 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 Jenny states she has to be careful with any exercises with her head below her heart. Treatment Goals Patient/Caregiver Goals Markell goals include improving core strength to properly lift her children uo and to be able to continue with a exercise routine. She would like to improve her abdominal strength without feeling abdominal pain and straining. Specifically she would like to be able to follow the barre blend routine from [employer]. Current Functional Impairments (Reported) Functional Limitations- Recreation/ difficulty with lifting Hobbies activites, unable to continue her exercise routine due to abdominal straining and pain. PT-OP-C Subjective Start: 09/08/20 08:59 Freq: Status: Active Protocol: Document 09/22/20 16:05 AMH (Rec: 09/22/20 16:08 [facility] [id number]) OP-PT Subjective Patient Comments Patient Comments Majo reports the abdominal soreness she was feeling last week went away. She has been able to do her abdominal exercises from her home program Patient Reported Progress Improving PT-OP-I Pelvic Floor Start: 09/08/20 08:59 Freq: Status: Active Protocol: Document 09/08/20 15:10 AMH (Rec: 09/08/20 15:49 [facility] [email or web address]) Pelvic Floor Assessment Comments Pelvic Floor Comments The pelvic floor was assessed externally today and Majo has difficulty sustaining a pelvic floor contraction for more than a few seconds. PT-OP-J Posture/Palpation/Skin Start: 09/08/20 08:59 Freq: Status: Active Protocol: Document 09/08/20 15:10 AMH (Rec: 09/08/20 15:49 [facility] [email or web address]) Palpation Assessment Location abdominal wall midline Palpation Location linea alba palpation for diastasis recti Palpation Details There is a 3 finger width diastasis seperation proximal to the umbilicus and 2 finger width seperation distal to the umbilicus. There is minimal bulging with trunk flexion and no hard end feel. PT-OP-L Special Tests Start: 09/08/20 08:59 Freq: Status: Active Protocol: Document 09/08/20 15:10 AMH (Rec: 09/08/20 15:49 [facility] [email or web address]) Special Tests Other Special Tests Special Tests + ASLR test B for decreased TA activation PT-OP-M Strength Start: 09/08/20 15:50 Freq: Status: Active Protocol: Document 09/08/20 15:50 AMH (Rec: 09/08/20 15:54 AMH [email or web address]) Trunk Strength Trunk Manual Muscle Testing Core Stabilization poor core stabilization with decrease activation of the transverse abdominal wall and pelvic floor, 3 finger width seperation of the linea alba proximal to umbilicus and 2 finger width distal to umbilicus PT-OP-Q Treatments Start: 09/08/20 08:59 Freq: Status: Active Protocol: Document 09/22/20 17:08 AMH (Rec: 09/22/20 17:15 [facility] [id number]) Therapeutic Exercises Supine Exercises ball squeeze with pelvic floor contraction Supine Exercise Name ball squeeze with pelvic floor contraction Reps/Minutes x 10 foam roll stretch chest title search manager Supine Exercise Name foam roll chest title search manager 4 Supine Exercise Name TA with heel slides Reps/Minutes x 10 reps 3 Supine Exercise Name TA with opposite arm and january 2 Supine Exercise Name TA with opposite arm lift overhead level 1 a lower abdominal stabilization Reps/Minutes x 10 reps Sidelying Exercises 2 Sidelying Exercise Name sidelying leg lifts Reps/Minutes 2 x 10 reps 1 Sidelying Exercise Name sidelying clam shells Side bilateral Reps/Minutes 2 x 10 reps Other Exercises 2 Other Exercise Name hip flexor stretch off the side of a bed 1 Other Exercise Name cat cow quadruped TA facilitation Side bilateral Reps/Minutes x 10 reps Neuro Re-Education Treatment Other Activities 1 Details EMG biofeedback for pelvic floor neuro re-education Comments Pt was educted in pelvic floor contraction and endurance training of the pelvic floor muscles PT-OP-T Assessment and Plan Start: 09/08/20 08:59 Freq: Status: Active Protocol: Document 09/22/20 17:08 [facility] (Rec: 09/22/20 17:15 [facility] [id number]) Physical Therapy Assessment Assessment Summary Assessment Majo is doing well with her exercises and progressing her stabilization well. Her average on EMG biofeedback today was 9.5 uv with 20 uv max Physical Therapy Plan Frequency and Duration Frequency of Treatment 1x/Week Duration of Treatment 8 Plan of Care Start Date 09/08/20 Plan of Care End Date 11/03/20 Therapeutic Interventions Therapeutic Interventions Home Exercise Program, Neuromuscular Re-education, Patient/Caregiver Education, Self-Care/Home Management, Therapeutic Exercises Next Visit Focus/Plan Next Note Type Treatment Note Next Visit Plan progress both pelvic floor and transverse abdominal progression to functional positions. sit-stand and squat positions
--- NOTE | 2020-10-12 13:58 | PT.OTN ---
Current Diagnoses Separation of muscle (nontraumatic), other site (10/12/20) Muscle weakness (generalized) (10/12/20) Unspecified abdominal pain (10/12/20) Physical Therapy Treatment Note PT-OP-A Visit Information Start: 09/08/20 08:59 Freq: Status: Active Protocol: Document 10/12/20 12:54 AMH (Rec: 10/12/20 13:44 AMH [id number]) Out-Patient Physical Therapy Visit Information Visit Information Visit Type Treatment Note Visit Start Time 12:45 Visit Stop Time 13:30 Total Visit Minutes 45 Visit Number 4 PT-OP-B Current Condition Start: 09/08/20 08:59 Freq: Status: Active Protocol: Document 09/08/20 15:10 AMH (Rec: 09/08/20 15:49 AMH [email or web address]) Current Condition History of Current Condition Onset Date 2016 Current Complaints abdominal seperation ( diastasis recti) following 3 pregnancies History of Current Condition Majo is a 30 year old female who seeks PT consult due to abdominal seperation and weakness from her three pregnancies. She had 3 births in 28 months. Her youngest will be 1 year old in September 2020. She notes she wants to work out but when she tries to progress her exercises she has felt a pulling sensation across her abdominal wall. She feels she has limits to the exercises she can perform. Majo denies any symptoms of bladder leakage but does note she will experience pelvic pressure and heaviness with menstruation. 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 Jenny states she has to be careful with any exercises with her head below her heart. Treatment Goals Patient/Caregiver Goals Markell goals include improving core strength to properly lift her children uo and to be able to continue with a exercise routine. She would like to improve her abdominal strength without feeling abdominal pain and straining. Specifically she would like to be able to follow the barre blend routine from [place]. Current Functional Impairments (Reported) Functional Limitations- Recreation/ difficulty with lifting Hobbies activites, unable to continue her exercise routine due to abdominal straining and pain. PT-OP-C Subjective Start: 09/08/20 08:59 Freq: Status: Active Protocol: Document 10/12/20 12:54 AMH (Rec: 10/12/20 13:44 AMH [id number]) OP-PT Subjective Patient Comments Patient Comments Majo was sore yesterday and she hasn't been able to do as much of her exercises. She has been working on stretching out her hip flexors and does feel like when she does her back stabilization exercises nia back feels better PT-OP-I Pelvic Floor Start: 09/08/20 08:59 Freq: Status: Active Protocol: Document 09/08/20 15:10 AMH (Rec: 09/08/20 15:49 AMH [email or web address]) Pelvic Floor Assessment Comments Pelvic Floor Comments The pelvic floor was assessed externally today and Majo has difficulty sustaining a pelvic floor contraction for more than a few seconds. PT-OP-J Posture/Palpation/Skin Start: 09/08/20 08:59 Freq: Status: Active Protocol: Document 09/08/20 15:10 AMH (Rec: 09/08/20 15:49 ON LICENSE OF [facility] [email or web address]) Palpation Assessment Location abdominal wall midline Palpation Location linea alba palpation for diastasis recti Palpation Details There is a 3 finger width diastasis seperation proximal to the umbilicus and 2 finger width seperation distal to the umbilicus. There is minimal bulging with trunk flexion and no hard end feel. PT-OP-L Special Tests Start: 09/08/20 08:59 Freq: Status: Active Protocol: Document 09/08/20 15:10 AMH (Rec: 09/08/20 15:49 ON LICENSE OF [facility] [email or web address]) Special Tests Other Special Tests Special Tests + ASLR test B for decreased TA activation PT-OP-M Strength Start: 09/08/20 15:50 Freq: Status: Active Protocol: Document 09/08/20 15:50 AMH (Rec: 09/08/20 15:54 AMH [email or web address]) Trunk Strength Trunk Manual Muscle Testing Core Stabilization poor core stabilization with decrease activation of the transverse abdominal wall and pelvic floor, 3 finger width seperation of the linea alba proximal to umbilicus and 2 finger width distal to umbilicus PT-OP-Q Treatments Start: 09/08/20 08:59 Freq: Status: Active Protocol: Document 10/12/20 12:54 AMH (Rec: 10/12/20 13:44 AMH [id number]) Therapeutic Exercises Supine Exercises Level 2 lower abdominal stabilization Supine Exercise Name l Reps/Minutes x 10 piriformis stretch Supine Exercise Name piriformis stretch Reps/Minutes 30 sec-1 min 4 Supine Exercise Name TA with heel slides Reps/Minutes x 10 reps 3 Supine Exercise Name TA with opposite arm and january 2 Supine Exercise Name TA with opposite arm lift overhead level 1 a lower abdominal stabilization Reps/Minutes x 10 reps 1 Supine Exercise Name Pelvic floor activation with a wedge under the pelvis to provide decompress Reps/Minutes 10 reps working up to 10 second hold time and 10 second relaxation Sidelying Exercises 2 Sidelying Exercise Name sidelying leg lifts Reps/Minutes 2 x 10 reps 1 Sidelying Exercise Name sidelying clam shells Side bilateral Reps/Minutes 2 x 10 reps Other Exercises 2 Other Exercise Name hip flexor stretch off the side of a bed 1 Other Exercise Name cat cow quadruped TA facilitation Side bilateral Reps/Minutes x 10 reps PT-OP-T Assessment and Plan Start: 09/08/20 08:59 Freq: Status: Active Protocol: Document 10/12/20 13:54 AMH (Rec: 10/12/20 13:58 AMH [id number]) Physical Therapy Assessment Assessment Summary Assessment Jenny is doing really well with her abdominal stabilization program and was able to progress to level 2. We also progressed quadruped arm and opp leg lifts. Clam shells difficult to hold her pelvis stable so she was shown supine roll outs with band and piriformis stretch Physical Therapy Plan Frequency and Duration Frequency of Treatment 1x/Week Duration of Treatment 8 Plan of Care Start Date 09/08/20 Plan of Care End Date 11/03/20 Next Visit Focus/Plan Next Note Type Treatment Note Next Visit Plan work on standing dynamic stabilization exercises
--- NOTE | 2020-10-27 17:42 | PT.OTN ---
Current Diagnoses Separation of muscle (nontraumatic), other site (10/27/20) Muscle weakness (generalized) (10/27/20) Unspecified abdominal pain (10/27/20) Physical Therapy Treatment Note PT-OP-A Visit Information Start: 09/08/20 08:59 Freq: Status: Active Protocol: Document 10/27/20 13:00 AMH (Rec: 10/27/20 13:00 AMH [id number]) Out-Patient Physical Therapy Visit Information Visit Information Visit Type Treatment Note Visit Start Time 13:00 Visit Stop Time 13:45 Total Visit Minutes 45 Visit Number 5 PT-OP-B Current Condition Start: 09/08/20 08:59 Freq: Status: Active Protocol: Document 09/08/20 15:10 AMH (Rec: 09/08/20 15:49 AMH [email or web address]) Current Condition History of Current Condition Onset Date 2016 Current Complaints abdominal seperation ( diastasis recti) following 3 pregnancies History of Current Condition Majo is a 30 year old female who seeks PT consult due to abdominal seperation and weakness from her three pregnancies. She had 3 births in 28 months. Her youngest will be 1 year old in September 2020. She notes she wants to work out but when she tries to progress her exercises she has felt a pulling sensation across her abdominal wall. She feels she has limits to the exercises she can perform. Majo denies any symptoms of bladder leakage but does note she will experience pelvic pressure and heaviness with menstruation. 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 Herrera states she has to be careful with any exercises with her head below her heart. Treatment Goals Patient/Caregiver Goals Markell goals include improving core strength to properly lift her children uo and to be able to continue with a exercise routine. She would like to improve her abdominal strength without feeling abdominal pain and straining. Specifically she would like to be able to follow the barre blend routine from [place] [employer]. Current Functional Impairments (Reported) Functional Limitations- Recreation/ difficulty with lifting Hobbies activites, unable to continue her exercise routine due to abdominal straining and pain. PT-OP-C Subjective Start: 09/08/20 08:59 Freq: Status: Active Protocol: Document 10/27/20 13:00 AMH (Rec: 10/27/20 13:06 AMH [email or web address]) OP-PT Subjective Patient Comments Patient Comments herrera reports she has been working her core. She did get cramping with her menstrual cycle starting and is on day 2 . PT-OP-I Pelvic Floor Start: 09/08/20 08:59 Freq: Status: Active Protocol: Document 09/08/20 15:10 AMH (Rec: 09/08/20 15:49 AMH [email or web address]) Pelvic Floor Assessment Comments Pelvic Floor Comments The pelvic floor was assessed externally today and Majo has difficulty sustaining a pelvic floor contraction for more than a few seconds. PT-OP-J Posture/Palpation/Skin Start: 09/08/20 08:59 Freq: Status: Active Protocol: Document 09/08/20 15:10 AMH (Rec: 09/08/20 15:49 AMH [email or web address]) Palpation Assessment Location abdominal wall midline Palpation Location linea alba palpation for diastasis recti Palpation Details There is a 3 finger width diastasis seperation proximal to the umbilicus and 2 finger width seperation distal to the umbilicus. There is minimal bulging with trunk flexion and no hard end feel. PT-OP-L Special Tests Start: 09/08/20 08:59 Freq: Status: Active Protocol: Document 09/08/20 15:10 AMH (Rec: 09/08/20 15:49 AMH [email or web address]) Special Tests Other Special Tests Special Tests + ASLR test B for decreased TA activation PT-OP-M Strength Start: 09/08/20 15:50 Freq: Status: Active Protocol: Document 09/08/20 15:50 AMH (Rec: 09/08/20 15:54 AMH [email or web address]) Trunk Strength Trunk Manual Muscle Testing Core Stabilization poor core stabilization with decrease activation of the transverse abdominal wall and pelvic floor, 3 finger width seperation of the linea alba proximal to umbilicus and 2 finger width distal to umbilicus PT-OP-Q Treatments Start: 09/08/20 08:59 Freq: Status: Active Protocol: Document 10/27/20 13:07 AMH (Rec: 10/27/20 13:46 AMH [id number]) Therapeutic Exercises Supine Exercises TA with SLR Supine Exercise Name TA with SLR Level 2 lower abdominal stabilization Supine Exercise Name l Reps/Minutes x 10 piriformis stretch Supine Exercise Name piriformis stretch Reps/Minutes 30 sec-1 min 4 Supine Exercise Name TA with heel slides Reps/Minutes x 10 reps level 1 a lower abdominal stabilization Reps/Minutes x 10 reps Sidelying Exercises 2 Sidelying Exercise Name sidelying leg lifts Reps/Minutes 2 x 10 reps 1 Sidelying Exercise Name sidelying clam shells Side bilateral Reps/Minutes 2 x 10 reps Other Exercises TA with opp arm opp leg Reps/Minutes x 8 reps each quadruped sidebends Other Exercise Name sidebends Reps/Minutes x 10 reps 2 Other Exercise Name hip flexor stretch off the side of a bed 1 Other Exercise Name cat cow quadruped TA facilitation Side bilateral Reps/Minutes x 10 reps PT-OP-T Assessment and Plan Start: 09/08/20 08:59 Freq: Status: Active Protocol: Document 10/27/20 17:40 AMH (Rec: 10/27/20 17:41 AMH [email or web address]) Physical Therapy Assessment Assessment Summary Assessment Herrera is progressing well with stabilization exercises. We worked on TA recruitment from sit-stand while she is on her peloton bike today. I also started gentle crunches with hands on her legs and sliding up her legs today Physical Therapy Plan Frequency and Duration Frequency of Treatment 1x/Week Duration of Treatment 8 Plan of Care Start Date 09/08/20 Plan of Care End Date 11/03/20
--- NOTE | 2020-11-03 09:03 | PT.OTN ---
Current Diagnoses Separation of muscle (nontraumatic), other site (11/16/20) Muscle weakness (generalized) (11/16/20) Unspecified abdominal pain (11/16/20) Physical Therapy Treatment Note PT-OP-A Visit Information Start: 09/08/20 08:59 Freq: Status: Active Protocol: Document 11/10/20 17:07 AMH (Rec: 11/10/20 17:41 AMH [email or web address]) Out-Patient Physical Therapy Visit Information Visit Information Visit Type Progress Note Visit Start Time 11:15 Visit Stop Time 12:00 Total Visit Minutes 45 Visit Number 7 PT-OP-B Current Condition Start: 09/08/20 08:59 Freq: Status: Active Protocol: Document 09/08/20 15:10 AMH (Rec: 09/08/20 15:49 AMH [email or web address]) Current Condition History of Current Condition Onset Date 2016 Current Complaints abdominal seperation ( diastasis recti) following 3 pregnancies History of Current Condition Majo is a 30 year old female who seeks PT consult due to abdominal seperation and weakness from her three pregnancies. She had 3 births in 28 months. Her youngest will be 1 year old in September 2020. She notes she wants to work out but when she tries to progress her exercises she has felt a pulling sensation across her abdominal wall. She feels she has limits to the exercises she can perform. Majo denies any symptoms of bladder leakage but does note she will experience pelvic pressure and heaviness with menstruation. 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 Jenny states she has to be careful with any exercises with her head below her heart. Treatment Goals Patient/Caregiver Goals Markell goals include improving core strength to properly lift her children uo and to be able to continue with a exercise routine. She would like to improve her abdominal strength without feeling abdominal pain and straining. Specifically she would like to be able to follow the barre blend routine from [place]. Current Functional Impairments (Reported) Functional Limitations- Recreation/ difficulty with lifting Hobbies activites, unable to continue her exercise routine due to abdominal straining and pain. PT-OP-C Subjective Start: 09/08/20 08:59 Freq: Status: Active Protocol: Document 11/03/20 11:16 AMH (Rec: 11/03/20 11:20 AMH [id number]) OP-PT Subjective Patient Comments Patient Comments She has been working out every day but yesterday. Her low back is a little sore from the new work outs. Her abdominal muscles felt good though. Patient Reported Progress Improving PT-OP-I Pelvic Floor Start: 09/08/20 08:59 Freq: Status: Active Protocol: Document 09/08/20 15:10 AMH (Rec: 09/08/20 15:49 AMH [email or web address]) Pelvic Floor Assessment Comments Pelvic Floor Comments The pelvic floor was assessed externally today and Majo has difficulty sustaining a pelvic floor contraction for more than a few seconds. PT-OP-J Posture/Palpation/Skin Start: 09/08/20 08:59 Freq: Status: Active Protocol: Document 09/08/20 15:10 AMH (Rec: 09/08/20 15:49 [facility] [email or web address]) Palpation Assessment Location abdominal wall midline Palpation Location linea alba palpation for diastasis recti Palpation Details There is a 3 finger width diastasis seperation proximal to the umbilicus and 2 finger width seperation distal to the umbilicus. There is minimal bulging with trunk flexion and no hard end feel. PT-OP-L Special Tests Start: 09/08/20 08:59 Freq: Status: Active Protocol: Document 09/08/20 15:10 AMH (Rec: 09/08/20 15:49 AMH [email or web address]) Special Tests Other Special Tests Special Tests + ASLR test B for decreased TA activation PT-OP-M Strength Start: 09/08/20 15:50 Freq: Status: Active Protocol: Document 09/08/20 15:50 AMH (Rec: 09/08/20 15:54 AMH [email or web address]) Trunk Strength Trunk Manual Muscle Testing Core Stabilization poor core stabilization with decrease activation of the transverse abdominal wall and pelvic floor, 3 finger width seperation of the linea alba proximal to umbilicus and 2 finger width distal to umbilicus PT-OP-Q Treatments Start: 09/08/20 08:59 Freq: Status: Active Protocol: Document 11/10/20 17:07 AMH (Rec: 11/10/20 17:41 AMH [email or web address]) Therapeutic Exercises Supine Exercises Level 2 lower abdominal stabilization Supine Exercise Name l Reps/Minutes x 10 piriformis stretch Supine Exercise Name piriformis stretch Reps/Minutes 30 sec-1 min 4 Supine Exercise Name TA with heel slides Reps/Minutes x 10 reps level 1 a lower abdominal stabilization Reps/Minutes x 10 reps Prone Exercises prone stabiilzation with opp leg lift Prone Exercise Name prone stabilization with opposite leg lift Reps/Minutes TA with leg lifts Sidelying Exercises 2 Sidelying Exercise Name sidelying leg lifts, hip circles Reps/Minutes 2 x 10 reps 1 Sidelying Exercise Name sidelying clam shells Side bilateral Reps/Minutes 2 x 10 reps Other Exercises pilates roll like a ball Other Exercise Name pilates roll like a ball pilates the hundred Comments modified with knees bent quadruped sidebends Other Exercise Name sidebends Reps/Minutes x 10 reps 2 Other Exercise Name 1/2 kneeling hip flexor stretch 1 Other Exercise Name cat cow quadruped TA facilitation Side bilateral Reps/Minutes x 10 reps PT-OP-T Assessment and Plan Start: 09/08/20 08:59 Freq: Status: Active Protocol: Document 11/10/20 17:07 AMH (Rec: 11/10/20 17:41 AMH [email or web address]) Physical Therapy Assessment Goals Decreased Pelvci floor endurance Impairment Decreased pelvic floor endurance Short Term Goal (STG) Majo is able to sustain a pelvic floor contraction for 10 seconds in supine GOAL MET STG Duration 4 weeks Admitting Representative Goal (LTG) Majo is no longer c/o pelvic pressure and heaviness with menstruation. GOOD PROGRESS LTG Duration 8 weeks Majo is unable to progress her exercise routine at home due to abdominal pain and weakness Impairment Majo is unable to progress her exercise routine due to weakness, pain Short Term Goal (STG) Majo is able to perform a TA facilitation in supine with marches without her pelvis rocking from side to side GOAL MET STG Duration 4 weeks Usp Goal (LTG) Majo is able to perform standing dynamic stabilization exericse without a abdominal bulge and without any abdominal pain. EXCELLENT PROGRESS LTG Duration 8 weeks Decreased strength of the transerse abdominal muscle Impairment Decreased strength of the Transverse abdominal muscle with diastasis Short Term Goal (STG) Majo is able to facilitate her TA in quadruped and sustain a contraction x 10 seconds for 10 reps GOAL MET STG Duration 4 weeks Admitting Representative Goal (LTG) Majo is able to demonstrate TA activation with sit-stand and with a squat to stand GOAL MET LTG Duration 8 weeks Progress Towards Goals Progress Towards Goals Progressing Toward Goals Assessment Summary Assessment Jenny continues to progress well with her exercise and has improved lumbar stabilization . She is tolerating the addition of dynamic stabilization exercises well. She is not feeling the strain on her abdominal wall now and is excited she has been able to use her new Peloton. We are progressing her to a dynamic stabilization program and she would like to continue PT Physical Therapy Plan Frequency and Duration Frequency of Treatment 1x/Week Duration of Treatment 8 Plan of Care Start Date 11/03/20 Plan of Care End Date 12/29/20 Therapeutic Interventions Therapeutic Interventions Home Exercise Program, Neuromuscular Re-education, Patient/Caregiver Education, Self-Care/Home Management, Therapeutic Exercises Next Visit Focus/Plan Next Note Type Treatment Note Next Visit Plan continue to progress dynamic stabilization
--- NOTE | 2020-11-10 17:41 | PT.OPPOC ---
Physical, Occupational & Speech Therapy At [facility] Current Diagnoses Separation of muscle (nontraumatic), other site (11/10/20) Muscle weakness (generalized) (11/10/20) Unspecified abdominal pain (11/10/20) Visit Care Team Role Provider Type Noreen Grey MD Attending Provider Physician Family Provider Primary Care Provider Referring Provider Specialty: Family Practice Address: [address] [place] [address], [place], [address] Email: [email or web address] Plan Of Care PT-OP-T Assessment and Plan Start: 09/08/20 08:59 Freq: Status: Active Protocol: Document 11/10/20 17:07 AMH (Rec: 11/10/20 17:41 AMH [email or web address]) Physical Therapy Assessment Goals Decreased Pelvci floor endurance Impairment Decreased pelvic floor endurance Short Term Goal (STG) Majo is able to sustain a pelvic floor contraction for 10 seconds in supine GOAL MET STG Duration 4 weeks Web Applications Developer Goal (LTG) Majo is no longer c/o pelvic pressure and heaviness with menstruation. GOOD PROGRESS LTG Duration 8 weeks Majo is unable to progress her exercise routine at home due to abdominal pain and weakness Impairment Majo is unable to progress her exercise routine due to weakness, pain Short Term Goal (STG) Majo is able to perform a TA facilitation in supine with marches without her pelvis rocking from side to side GOAL MET STG Duration 4 weeks Half-Way Goal (LTG) Majo is able to perform standing dynamic stabilization exercise without a abdominal bulge and without any abdominal pain. EXCELLENT PROGRESS LTG Duration 8 weeks Decreased strength of the transerse abdominal muscle Impairment Decreased strength of the Transverse abdominal muscle with diastasis Short Term Goal (STG) Majo is able to facilitate her TA in quadruped and sustain a contraction x 10 seconds for 10 reps GOAL MET STG Duration 4 weeks Web Applications Developer Goal (LTG) Majo is able to demonstrate TA activation with sit-stand and with a squat to stand GOAL MET LTG Duration 8 weeks Progress Towards Goals Progress Towards Goals Progressing Toward Goals Assessment Summary Assessment Jenny continues to progress well with her exercise and has improved lumbar stabilization. She is tolerating the addition of dynamic stabilization exercises well. She is not feeling the strain on her abdominal wall now and is excited she has been able to use her new Peloton. We are progressing her to a dynamic stabilization program and she would like to continue PT Physical Therapy Plan Frequency and Duration Frequency of Treatment 1x/Week Duration of Treatment 8 Plan of Care Start Date 11/03/20 Plan of Care End Date 12/29/20 Therapeutic Interventions Therapeutic Interventions Home Exercise Program, Neuromuscular Re-education, Patient/Caregiver Education, Self-Care/Home Management, Therapeutic Exercises Next Visit Focus/Plan Next Note Type Treatment Note Next Visit Plan continue to progress dynamic stabilization Plan of Care Dates Plan of Care Start Date 11/03/20 Plan of Care End Date 12/29/20 Electronically Signed by: Ewa Nance, PT 11/10/20 [id number] Please Sign and Return: I have reviewed this Plan of Care and certify that the skilled therapy services above are required to meet the patient?s needs. Physician Signature Date Printed Name and Credentials Clinical Instructor Signature Printed Name and Credentials
--- NOTE | 2020-11-16 14:19 | PT.OTN ---
Current Diagnoses Separation of muscle (nontraumatic), other site (11/16/20) Muscle weakness (generalized) (11/16/20) Unspecified abdominal pain (11/16/20) Physical Therapy Treatment Note PT-OP-A Visit Information Start: 09/08/20 08:59 Freq: Status: Active Protocol: Document 11/16/20 14:11 [facility] (Rec: 11/16/20 14:19 [facility] [email or web address]) Out-Patient Physical Therapy Visit Information Visit Information Visit Type Treatment Note Visit Start Time 12:00 Visit Stop Time 12:45 Total Visit Minutes 45 Visit Number 8 PT-OP-B Current Condition Start: 09/08/20 08:59 Freq: Status: Active Protocol: Document 09/08/20 15:10 [facility] (Rec: 09/08/20 15:49 [facility] [email or web address]) Current Condition History of Current Condition Onset Date 2016 Current Complaints abdominal seperation ( diastasis recti) following 3 pregnancies History of Current Condition Majo is a 30 year old female who seeks PT consult due to abdominal seperation and weakness from her three pregnancies. She had 3 births in 28 months. Her youngest will be 1 year old in September 2020. She notes she wants to work out but when she tries to progress her exercises she has felt a pulling sensation across her abdominal wall. She feels she has limits to the exercises she can perform. Majo denies any symptoms of bladder leakage but does note she will experience pelvic pressure and heaviness with menstruation. 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 Jenny states she has to be careful with any exercises with her head below her heart. Treatment Goals Patient/Caregiver Goals Markell goals include improving core strength to properly lift her children uo and to be able to continue with a exercise routine. She would like to improve her abdominal strength without feeling abdominal pain and straining. Specifically she would like to be able to follow the barre blend routine from [employer]. Current Functional Impairments (Reported) Functional Limitations- Recreation/ difficulty with lifting Hobbies activites, unable to continue her exercise routine due to abdominal straining and pain. PT-OP-C Subjective Start: 09/08/20 08:59 Freq: Status: Active Protocol: Document 11/16/20 14:11 [facility] (Rec: 11/16/20 14:19 [facility] [email or web address]) OP-PT Subjective Patient Comments Patient Comments Majo notes she is doing so much better overall. Her back doesn't hurt and she has been able to lift her son into his car seat without pain. She has also been able to progress her workouts without any pain . PT-OP-I Pelvic Floor Start: 09/08/20 08:59 Freq: Status: Active Protocol: Document 09/08/20 15:10 [facility] (Rec: 09/08/20 15:49 [facility] [email or web address]) Pelvic Floor Assessment Comments Pelvic Floor Comments The pelvic floor was assessed externally today and Majo has difficulty sustaining a pelvic floor contraction for more than a few seconds. PT-OP-J Posture/Palpation/Skin Start: 09/08/20 08:59 Freq: Status: Active Protocol: Document 09/08/20 15:10 [facility] (Rec: 09/08/20 15:49 [facility] [email or web address]) Palpation Assessment Location abdominal wall midline Palpation Location linea alba palpation for diastasis recti Palpation Details There is a 3 finger width diastasis seperation proximal to the umbilicus and 2 finger width seperation distal to the umbilicus. There is minimal bulging with trunk flexion and no hard end feel. PT-OP-L Special Tests Start: 09/08/20 08:59 Freq: Status: Active Protocol: Document 09/08/20 15:10 [facility] (Rec: 09/08/20 15:49 [facility] [email or web address]) Special Tests Other Special Tests Special Tests + ASLR test B for decreased TA activation PT-OP-M Strength Start: 09/08/20 15:50 Freq: Status: Active Protocol: Document 09/08/20 15:50 [facility] (Rec: 09/08/20 15:54 [facility] [email or web address]) Trunk Strength Trunk Manual Muscle Testing Core Stabilization poor core stabilization with decrease activation of the transverse abdominal wall and pelvic floor, 3 finger width seperation of the linea alba proximal to umbilicus and 2 finger width distal to umbilicus PT-OP-Q Treatments Start: 09/08/20 08:59 Freq: Status: Active Protocol: Document 11/16/20 14:11 [facility] (Rec: 11/16/20 14:19 [facility] [email or web address]) Therapeutic Exercises Supine Exercises TA with SLR Supine Exercise Name TA with SLR Level 2 lower abdominal stabilization Supine Exercise Name l Reps/Minutes x 10 piriformis stretch Supine Exercise Name piriformis stretch Reps/Minutes 30 sec-1 min 4 Supine Exercise Name TA with heel slides Reps/Minutes x 10 reps 3 Supine Exercise Name TA with opposite arm and january 24 Supine Exercise Name TA with opposite arm lift overhead level 1 a lower abdominal stabilization Reps/Minutes x 10 reps 1 Supine Exercise Name Pelvic floor activation with a wedge under the pelvis to provide decompress Reps/Minutes 10 reps working up to 10 second hold time and 10 second relaxation Prone Exercises prone stabiilzation with opp leg lift Prone Exercise Name prone stabilization with opposite leg lift Reps/Minutes TA with leg lifts Other Exercises standing squats and mini lunges Reps/Minutes x 20 each Comments used a theraband for stability pilates roll like a ball Other Exercise Name pilates roll like a ball pilates the hundred Comments modified with knees bent TA with opp arm opp leg Reps/Minutes x 8 reps each quadruped sidebends Other Exercise Name sidebends Reps/Minutes x 10 reps 2 Other Exercise Name 1/2 kneeling hip flexor stretch 1 Other Exercise Name cat cow quadruped TA facilitation Side bilateral Reps/Minutes x 10 reps PT-OP-T Assessment and Plan Start: 09/08/20 08:59 Freq: Status: Active Protocol: Document 11/16/20 14:11 [facility] (Rec: 11/16/20 14:19 [facility] [email or web address]) Physical Therapy Plan Frequency and Duration Frequency of Treatment 1x/Week Duration of Treatment 8 Plan of Care Start Date 11/03/20 Plan of Care End Date 12/29/20 Therapeutic Interventions Therapeutic Interventions Home Exercise Program, Neuromuscular Re-education, Patient/Caregiver Education, Self-Care/Home Management, Therapeutic Exercises Next Visit Focus/Plan Next Note Type Treatment Note Next Visit Plan recheck in 6 weeks
--- NOTE | 2020-12-29 18:08 | PT.OTN ---
Current Diagnoses Separation of muscle (nontraumatic), other site (12/29/20) Muscle weakness (generalized) (12/29/20) Unspecified abdominal pain (12/29/20) Physical Therapy Treatment Note PT-OP-A Visit Information Start: 09/08/20 08:59 Freq: Status: Active Protocol: Document 12/29/20 13:00 [facility] (Rec: 12/29/20 12:59 [facility] [email or web address]) Out-Patient Physical Therapy Visit Information Visit Information Visit Type Treatment Note Visit Start Time 13:00 Visit Stop Time 13:45 Total Visit Minutes 45 Visit Number 9 PT-OP-B Current Condition Start: 09/08/20 08:59 Freq: Status: Active Protocol: Document 09/08/20 15:10 [facility] (Rec: 09/08/20 15:49 [facility] [email or web address]) Current Condition History of Current Condition Onset Date 2016 Current Complaints abdominal seperation ( diastasis recti) following 3 pregnancies History of Current Condition Majo is a 30 year old female who seeks PT consult due to abdominal seperation and weakness from her three pregnancies. She had 3 births in 28 months. Her youngest will be 1 year old in September 2020. She notes she wants to work out but when she tries to progress her exercises she has felt a pulling sensation across her abdominal wall. She feels she has limits to the exercises she can perform. Majo denies any symptoms of bladder leakage but does note she will experience pelvic pressure and heaviness with menstruation. 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 Jenny states she has to be careful with any exercises with her head below her heart. Treatment Goals Patient/Caregiver Goals Markell goals include improving core strength to properly lift her children uo and to be able to continue with a exercise routine. She would like to improve her abdominal strength without feeling abdominal pain and straining. Specifically she would like to be able to follow the barre blend routine from [place] [employer]. Current Functional Impairments (Reported) Functional Limitations- Recreation/ difficulty with lifting Hobbies activites, unable to continue her exercise routine due to abdominal straining and pain. PT-OP-C Subjective Start: 09/08/20 08:59 Freq: Status: Active Protocol: Document 12/29/20 13:00 [facility] (Rec: 12/29/20 13:18 [facility] [id number]) OP-PT Subjective Patient Comments Patient Comments Has been doing bike boot camps , he hasn't felt any regression with her core. Able to stand for her full workout. wants to work on push ups and modification to crunch, planks. PT-OP-I Pelvic Floor Start: 09/08/20 08:59 Freq: Status: Active Protocol: Document 09/08/20 15:10 [facility] (Rec: 09/08/20 15:49 [email or web address]) Pelvic Floor Assessment Comments Pelvic Floor Comments The pelvic floor was assessed externally today and Majo has difficulty sustaining a pelvic floor contraction for more than a few seconds. PT-OP-J Posture/Palpation/Skin Start: 09/08/20 08:59 Freq: Status: Active Protocol: Document 09/08/20 15:10 [facility] (Rec: 09/08/20 15:49 [email or web address]) Palpation Assessment Location abdominal wall midline Palpation Location linea alba palpation for diastasis recti Palpation Details There is a 3 finger width diastasis seperation proximal to the umbilicus and 2 finger width seperation distal to the umbilicus. There is minimal bulging with trunk flexion and no hard end feel. PT-OP-L Special Tests Start: 09/08/20 08:59 Freq: Status: Active Protocol: Document 09/08/20 15:10 [facility] (Rec: 09/08/20 15:49 [email or web address]) Special Tests Other Special Tests Special Tests + ASLR test B for decreased TA activation PT-OP-M Strength Start: 09/08/20 15:50 Freq: Status: Active Protocol: Document 09/08/20 15:50 [facility] (Rec: 09/08/20 15:54 [facility] [email or web address]) Trunk Strength Trunk Manual Muscle Testing Core Stabilization poor core stabilization with decrease activation of the transverse abdominal wall and pelvic floor, 3 finger width seperation of the linea alba proximal to umbilicus and 2 finger width distal to umbilicus PT-OP-Q Treatments Start: 09/08/20 08:59 Freq: Status: Active Protocol: Document 12/29/20 13:00 [facility] (Rec: 12/29/20 18:08 [facility] [email or web address]) Therapeutic Exercises Supine Exercises abdominal crunches progression Supine Exercise Name worked on progression of crunches Comments worked on abdominal crunches progression Level 2 lower abdominal stabilization Supine Exercise Name l Reps/Minutes x 10 Sidelying Exercises side planks Sidelying Exercise Name side planks Comments review of modification with side planks Other Exercises push ups Other Exercise Name push ups Comments worked on form with pushups and wall pushups Manual Therapy Treatment Manual Techniques manual recheck of diastasis recti Type manual recheck of diastasis recti Comments pt is doing really well with abdominal stabiilzation exercses. No bulges felt at midline. There is a 1 finger width diastasis proximal to umbilicus and 2 finger width seperation at the umbilicus. PT-OP-T Assessment and Plan Start: 09/08/20 08:59 Freq: Status: Active Protocol: Document 12/29/20 13:00 [facility] (Rec: 12/29/20 18:08 [facility] [email or web address]) Physical Therapy Assessment Goals Majo would like to be able to complete 10 pushups with good form Impairment Decreased strength for pushups Short Term Goal (STG) Majo is able to complete 10 pushups with good form and her core stabilized. Decreased Pelvci floor endurance Impairment Decreased pelvic floor endurance Short Term Goal (STG) Majo is able to sustain a pelvic floor contraction for 10 seconds in supine GOAL MET STG Duration 4 weeks [facility] Goal (LTG) Majo is no longer c/o pelvic pressure and heaviness with menstruation. GOAL MET LTG Duration 8 weeks Majo is unable to progress her exercise routine at home due to abdominal pain and weakness Impairment Majo is unable to progress her exercise routine due to weakness, pain Short Term Goal (STG) Majo is able to perform a TA facilitation in supine with marches without her pelvis rocking from side to side GOAL MET STG Duration 4 weeks [facility] Goal (LTG) Majo is able to perform standing dynamic stabilization exericse without a abdominal bulge and without any abdominal pain. GOAL MET LTG Duration 8 weeks Decreased strength of the transerse abdominal muscle Impairment Decreased strength of the Transverse abdominal muscle with diastasis Short Term Goal (STG) Majo is able to facilitate her TA in quadruped and sustain a contraction x 10 seconds for 10 reps GOAL MET STG Duration 4 weeks [facility] Goal (LTG) Majo is able to demonstrate TA activation with sit-stand and with a squat to stand GOAL MET Progress Towards Goals Progress Towards Goals Progressing Toward Goals Assessment Summary Assessment Majo is doing really well with her stabilization exercises and core progression . She has been using her peloton at home for exercise and has been working on some of the core programs which she feels she is able to do now. She denied any complaints of back or abdominal pain today. We reviewed form with highter level abdominal stabilization exercises today and Majo tolerated this well. She would like to recheck for one last visit in 6 weeks after she has progressed her stabilization exercises at home. Physical Therapy Plan Frequency and Duration Frequency of Treatment 1x/Week Duration of Treatment 8 Plan of Care Start Date 12/29/20 Plan of Care End Date 02/23/21 Therapeutic Interventions Therapeutic Interventions Home Exercise Program, Neuromuscular Re-education, Patient/Caregiver Education, Self-Care/Home Management, Therapeutic Exercises Next Visit Focus/Plan Next Note Type Treatment Note Next Visit Plan This will be Markell last PT visit. Review core stabilization exercises she is doing with her classes and modify if needed.
--- NOTE | 2020-12-29 18:09 | PT.OPPOC ---
Physical, Occupational & Speech Therapy At [facility] Current Diagnoses Separation of muscle (nontraumatic), other site (12/29/20) Muscle weakness (generalized) (12/29/20) Unspecified abdominal pain (12/29/20) Visit Care Team Role Provider Type Noreen Grey MD Attending Provider Physician Family Provider Primary Care Provider Referring Provider Specialty: Family Practice Address: [address] [place] [address], [facility] [place], [address] Email: [email or web address] Plan Of Care PT-OP-T Assessment and Plan Start: 09/08/20 08:59 Freq: Status: Active Protocol: Document 12/29/20 13:00 [facility] (Rec: 12/29/20 18:08 [facility] [email or web address]) Physical Therapy Assessment Goals Majo would like to be able to complete 10 pushups with good form Impairment Decreased strength for pushups Short Term Goal (STG) Majo is able to complete 10 pushups with good form and her core stabilized. Decreased Pelvci floor endurance Impairment Decreased pelvic floor endurance Short Term Goal (STG) Majo is able to sustain a pelvic floor contraction for 10 seconds in supine GOAL MET STG Duration 4 weeks Ste[facility] Goal (LTG) Majo is no longer c/o pelvic pressure and heaviness with menstruation. GOAL MET LTG Duration 8 weeks Majo is unable to progress her exercise routine at home due to abdominal pain and weakness Impairment Majo is unable to progress her exercise routine due to weakness, pain Short Term Goal (STG) Majo is able to perform a TA facilitation in supine with marches without her pelvis rocking from side to side GOAL MET STG Duration 4 weeks [facility] Goal (LTG) Majo is able to perform standing dynamic stabilization exericse without a abdominal bulge and without any abdominal pain. GOAL MET LTG Duration 8 weeks Decreased strength of the transerse abdominal muscle Impairment Decreased strength of the Transverse abdominal muscle with diastasis Short Term Goal (STG) Majo is able to facilitate her TA in quadruped and sustain a contraction x 10 seconds for 10 reps GOAL MET STG Duration 4 weeks [facility] Goal (LTG) Majo is able to demonstrate TA activation with sit-stand and with a squat to stand GOAL MET Progress Towards Goals Progress Towards Goals Progressing Toward Goals Assessment Summary Assessment Majo is doing really well with her stabilization exercises and core progression She has been using her peloton at home for exercise and has been working on some of the core programs that come with the peloton which she feels she is able to do now. She denied any complaints of back or abdominal pain today. We reviewed her form with higher level abdominal stabilization exercises today and Majo tolerated this well. She would like to recheck for one last visit in 6 weeks after she has progressed her stabilization exercises at home. She will then be DC to a [facility] Physical Therapy Plan Frequency and Duration Frequency of Treatment 1x/Week Duration of Treatment 8 Plan of Care Start Date 12/29/20 Plan of Care End Date 02/23/21 Therapeutic Interventions Therapeutic Interventions Home Exercise Program, Neuromuscular Re-education, Patient/Caregiver Education, Self-Care/Home Management, Therapeutic Exercises Next Visit Focus/Plan Next Note Type Treatment Note Next Visit Plan This will be Markell last PT visit. Review core stabilization exercises she is doing with her classes and modify if needed. Plan of Care Dates Plan of Care Start Date 12/29/20 Plan of Care End Date 02/23/21 Electronically Signed by: Ewa Nance, PT 12/29/20 [id number] Please Sign and Return: I have reviewed this Plan of Care and certify that the skilled therapy services above are required to meet the patient?s needs. Physician Signature Date Printed Name and Credentials Clinical Instructor Signature Printed Name and Credentials
--- NOTE | 2021-03-22 11:31 | PT.OTN ---
Current Diagnoses Separation of muscle (nontraumatic), other site (03/22/21) Muscle weakness (generalized) (03/22/21) Unspecified abdominal pain (03/22/21) Physical Therapy Treatment Note PT-OP-A Visit Information Start: 09/08/20 08:59 Freq: Status: Active Protocol: Document 03/22/21 09:49 [facility] (Rec: 03/22/21 11:19 [facility] [id number]) Out-Patient Physical Therapy Visit Information Visit Information Visit Type Treatment Note Visit Start Time 09:50 Visit Stop Time 10:30 Total Visit Minutes 40 Visit Number 10 PT-OP-B Current Condition Start: 09/08/20 08:59 Freq: Status: Active Protocol: Document 09/08/20 15:10 [facility] (Rec: 09/08/20 15:49 [facility] [email or web address]) Current Condition History of Current Condition Onset Date 2016 Current Complaints abdominal seperation ( diastasis recti) following 3 pregnancies History of Current Condition Majo is a 30 year old female who seeks PT consult due to abdominal seperation and weakness from her three pregnancies. She had 3 births in 28 months. Her youngest will be 1 year old in September 2020. She notes she wants to work out but when she tries to progress her exercises she has felt a pulling sensation across her abdominal wall. She feels she has limits to the exercises she can perform. Majo denies any symptoms of bladder leakage but does note she will experience pelvic pressure and heaviness with menstruation. 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 Jenny states she has to be careful with any exercises with her head below her heart. Treatment Goals Patient/Caregiver Goals Markell goals include improving core strength to properly lift her children uo and to be able to continue with a exercise routine. She would like to improve her abdominal strength without feeling abdominal pain and straining. Specifically she would like to be able to follow the barre blend routine [place]. Current Functional Impairments (Reported) Functional Limitations- Recreation/ difficulty with lifting Hobbies activites, unable to continue her exercise routine due to abdominal straining and pain. PT-OP-C Subjective Start: 09/08/20 08:59 Freq: Status: Active Protocol: Document 03/22/21 09:49 [facility] (Rec: 03/22/21 11:19 [facility] [id number]) OP-PT Subjective Patient Comments Patient Comments pt feels like she is able to do more things even with missing some exercise in between, no discomfort from the diastasis having a hard time with side planks, sumo squats. PT-OP-I Pelvic Floor Start: 09/08/20 08:59 Freq: Status: Active Protocol: Document 09/08/20 15:10 [facility] (Rec: 09/08/20 15:49 [facility] [email or web address]) Pelvic Floor Assessment Comments Pelvic Floor Comments The pelvic floor was assessed externally today and Majo has difficulty sustaining a pelvic floor contraction for more than a few seconds. PT-OP-J Posture/Palpation/Skin Start: 09/08/20 08:59 Freq: Status: Active Protocol: Document 09/08/20 15:10 [facility] (Rec: 09/08/20 15:49 [facility] [email or web address]) Palpation Assessment Location abdominal wall midline Palpation Location linea alba palpation for diastasis recti Palpation Details There is a 3 finger width diastasis seperation proximal to the umbilicus and 2 finger width seperation distal to the umbilicus. There is minimal bulging with trunk flexion and no hard end feel. PT-OP-L Special Tests Start: 09/08/20 08:59 Freq: Status: Active Protocol: Document 09/08/20 15:10 [facility] (Rec: 09/08/20 15:49 [facility] [email or web address]) Special Tests Other Special Tests Special Tests + ASLR test B for decreased TA activation PT-OP-M Strength Start: 09/08/20 15:50 Freq: Status: Active Protocol: Document 09/08/20 15:50 [facility] (Rec: 09/08/20 15:54 [facility] [email or web address]) Trunk Strength Trunk Manual Muscle Testing Core Stabilization poor core stabilization with decrease activation of the transverse abdominal wall and pelvic floor, 3 finger width seperation of the linea alba proximal to umbilicus and 2 finger width distal to umbilicus PT-OP-Q Treatments Start: 09/08/20 08:59 Freq: Status: Active Protocol: Document 03/22/21 11:21 [facility] (Rec: 03/22/21 11:31 [facility] [email or web address]) Therapeutic Exercises Supine Exercises reverse cruches starting from sitting Reps/Minutes x5 Comments pt educated in keeping core activated and segmenitally rolling one vertebra rolling like a ball Comments pt educated in keeping her core activated for this abdominal crunches progression Supine Exercise Name worked on progression of crunches Comments worked on abdominal crunches progression and reviewed this from last visit Level 2 lower abdominal stabilization Supine Exercise Name l Reps/Minutes x 10 Sidelying Exercises side planks Sidelying Exercise Name side planks Equipment Used used wall for stabilization Comments review of modification with side planks Other Exercises sumo squats Reps/Minutes x 10 Comments with hip ER as needed Manual Therapy Treatment Manual Techniques manual recheck of diastasis recti Type manual recheck of diastasis recti Comments pt is doing really well with abdominal stabiilzation exercses. No bulges felt at midline. There is a 1 finger width diastasis proximal to umbilicus and 2 finger width seperation at the umbilicus. I am not feeling any seperation distal to the umbilicus PT-OP-T Assessment and Plan Start: 09/08/20 08:59 Freq: Status: Active Protocol: Document 03/22/21 11:21 [facility] (Rec: 03/22/21 11:31 [facility] [email or web address]) Physical Therapy Assessment Goals Majo is able to sustain a side plank for 30 seconds each side keeping good form Impairment Majo would like to be able to hold a side plank without loss of balance Shank Paperer Goal (LTG) Majo is able to sustain a side plank for 30 seconds each side keeping in good form LTG Duration 6 weeks Majo would like to be able to complete 10 pushups with good form Impairment Decreased strength for pushups Short Term Goal (STG) Majo is able to complete 10 pushups with good form and her core stabilized. Excellent progress as plank position is much more stable now Decreased Pelvci floor endurance Impairment Decreased pelvic floor endurance Short Term Goal (STG) Majo is able to sustain a pelvic floor contraction for 10 seconds in supine GOAL MET STG Duration 4 weeks Shank Paperer Goal (LTG) Majo is no longer c/o pelvic pressure and heaviness with menstruation. GOAL MET LTG Duration 8 weeks Majo is unable to progress her exercise routine at home due to abdominal pain and weakness Impairment Majo is unable to progress her exercise routine due to weakness, pain Short Term Goal (STG) Majo is able to perform a TA facilitation in supine with marches without her pelvis rocking from side to side GOAL MET STG Duration 4 weeks Shank Paperer Goal (LTG) Majo is able to perform standing dynamic stabilization exericse without a abdominal bulge and without any abdominal pain. GOAL MET LTG Duration 8 weeks Decreased strength of the transerse abdominal muscle Impairment Decreased strength of the Transverse abdominal muscle with diastasis Short Term Goal (STG) Majo is able to facilitate her TA in quadruped and sustain a contraction x 10 seconds for 10 reps GOAL MET STG Duration 4 weeks Snf Goal (LTG) Majo is able to demonstrate TA activation with sit-stand and with a squat to stand GOAL MET Assessment Summary Assessment Majo was seen today after working on her own since Dec 29. She continues to do really well with her stabilization exercises and core progression. She has been using her peloton at home for exercise. She denied any complaints of back or abdominal pain today. We reviewed form with highter level abdominal stabilization exercises today and Majo tolerated this well. She has been able to progress to plank and side plank positions. As Majo is increasing her difficulty with exercises she would like modifications of some of the exercises she is attmepting so that she doesn't injure her back or strain her abdominal wall. I am happy to assist her again in 4-6 weeks with her higher level exercise program. She would like to recheck in 6 weeks after she has progressed her stabilization exercises at home.
--- NOTE | 2021-03-22 11:32 | PT.OPPOC ---
Physical, Occupational & Speech Therapy At [facility] Current Diagnoses Separation of muscle (nontraumatic), other site (03/22/21) Muscle weakness (generalized) (03/22/21) Unspecified abdominal pain (03/22/21) Visit Care Team Role Provider Type Noreen Grey MD Attending Provider Physician Family Provider Primary Care Provider Referring Provider Specialty: Family Practice Address: [address] [place] [address], [facility] [place], [address] Email: [email or web address] Plan Of Care PT-OP-T Assessment and Plan Start: 09/08/20 08:59 Freq: Status: Active Protocol: Document 03/22/21 11:21 [facility] (Rec: 03/22/21 11:31 [facility] [email or web address]) Physical Therapy Assessment Goals Majo is able to sustain a side plank for 30 seconds each side keeping good form Impairment Majo would like to be able to hold a side plank without loss of balance Silk Trimmer Goal (LTG) Majo is able to sustain a side plank for 30 seconds each side keeping in good form LTG Duration 6 weeks Majo would like to be able to complete 10 pushups with good form Impairment Decreased strength for pushups Short Term Goal (STG) Majo is able to complete 10 pushups with good form and her core stabilized. Excellent progress as plank position is much more stable now Decreased Pelvci floor endurance Impairment Decreased pelvic floor endurance Short Term Goal (STG) Majo is able to sustain a pelvic floor contraction for 10 seconds in supine GOAL MET STG Duration 4 weeks Silk Trimmer Goal (LTG) Majo is no longer c/o pelvic pressure and heaviness with menstruation. GOAL MET LTG Duration 8 weeks Majo is unable to progress her exercise routine at home due to abdominal pain and weakness Impairment Majo is unable to progress her exercise routine due to weakness, pain Short Term Goal (STG) Majo is able to perform a TA facilitation in supine with marches without her pelvis rocking from side to side GOAL MET STG Duration 4 weeks Mcc Goal (LTG) Majo is able to perform standing dynamic stabilization exericse without a abdominal bulge and without any abdominal pain. GOAL MET LTG Duration 8 weeks Decreased strength of the transerse abdominal muscle Impairment Decreased strength of the Transverse abdominal muscle with diastasis Short Term Goal (STG) Majo is able to facilitate her TA in quadruped and sustain a contraction x 10 seconds for 10 reps GOAL MET STG Duration 4 weeks Silk Trimmer Goal (LTG) Majo is able to demonstrate TA activation with sit-stand and with a squat to stand GOAL MET Assessment Summary Assessment Majo was seen today after working on her own since Dec 29. She continues to do really well with her stabilization exercises and core progression. She has been using her peloton at home for exercise. She denied any complaints of back or abdominal pain today. We reviewed form with higher level abdominal stabilization exercises today and Majo tolerated this well. She has been able to progress to plank and side plank positions. As Majo is increasing her difficulty with exercises she would like modifications of some of the exercises she is attempting so that she doesn't injure her back or strain her abdominal wall. I am happy to assist her again in 4-6 weeks with her higher level exercise program. She would like to recheck in 6 weeks after she has progressed her stabilization exercises at home. Plan of Care Dates Plan of Care Start Date 12/29/20 Plan of Care End Date 02/23/21 Electronically Signed by: Ewa Nance, PT 03/22/21 [id number] Please Sign and Return: I have reviewed this Plan of Care and certify that the skilled therapy services above are required to meet the patient?s needs. Physician Signature Date Printed Name and Credentials Clinical Instructor Signature Printed Name and Credentials
--- NOTE | 2021-03-22 11:34 | PT.OPPN ---
Current Diagnoses Separation of muscle (nontraumatic), other site (03/22/21) Muscle weakness (generalized) (03/22/21) Unspecified abdominal pain (03/22/21) Physical Therapy Progress Note PT-OP-A Visit Information Start: 09/08/20 08:59 Freq: Status: Active Protocol: Document 03/22/21 09:49 [facility] (Rec: 03/22/21 11:19 [facility] [id number]) Out-Patient Physical Therapy Visit Information Visit Information Visit Type Treatment Note Visit Start Time 09:50 Visit Stop Time 10:30 Total Visit Minutes 40 Visit Number 10 PT-OP-B Current Condition Start: 09/08/20 08:59 Freq: Status: Active Protocol: Document 09/08/20 15:10 [facility] (Rec: 09/08/20 15:49 [facility] [email or web address]) Current Condition History of Current Condition Onset Date 2016 Current Complaints abdominal seperation ( diastasis recti) following 3 pregnancies History of Current Condition Majo is a 30 year old female who seeks PT consult due to abdominal seperation and weakness from her three pregnancies. She had 3 births in 28 months. Her youngest will be 1 year old in September 2020. She notes she wants to work out but when she tries to progress her exercises she has felt a pulling sensation across her abdominal wall. She feels she has limits to the exercises she can perform. Majo denies any symptoms of bladder leakage but does note she will experience pelvic pressure and heaviness with menstruation. 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 Jenny states she has to be careful with any exercises with her head below her heart. Treatment Goals Patient/Caregiver Goals Markell goals include improving core strength to properly lift her children uo and to be able to continue with a exercise routine. She would like to improve her abdominal strength without feeling abdominal pain and straining. Specifically she would like to be able to follow the bar[place] blend routine [place]. Current Functional Impairments (Reported) Functional Limitations- Recreation/ difficulty with lifting Hobbies activites, unable to continue her exercise routine due to abdominal straining and pain. PT-OP-C Subjective Start: 09/08/20 08:59 Freq: Status: Active Protocol: Document 03/22/21 09:49 [facility] (Rec: 03/22/21 11:19 [facility] [id number]) OP-PT Subjective Patient Comments Patient Comments pt feels like she is able to do more things even with missing some exercise in between, no discomfort from the diastasis having a hard time with side planks, sumo squats. PT-OP-I Pelvic Floor Start: 09/08/20 08:59 Freq: Status: Active Protocol: Document 09/08/20 15:10 [facility] (Rec: 09/08/20 15:49 [facility] [email or web address]) Pelvic Floor Assessment Comments Pelvic Floor Comments The pelvic floor was assessed externally today and Majo has difficulty sustaining a pelvic floor contraction for more than a few seconds. PT-OP-J Posture/Palpation/Skin Start: 09/08/20 08:59 Freq: Status: Active Protocol: Document 09/08/20 15:10 [facility] (Rec: 09/08/20 15:49 [facility] [email or web address]) Palpation Assessment Location abdominal wall midline Palpation Location linea alba palpation for diastasis recti Palpation Details There is a 3 finger width diastasis seperation proximal to the umbilicus and 2 finger width seperation distal to the umbilicus. There is minimal bulging with trunk flexion and no hard end feel. PT-OP-L Special Tests Start: 09/08/20 08:59 Freq: Status: Active Protocol: Document 09/08/20 15:10 [facility] (Rec: 09/08/20 15:49 [facility] [email or web address]) Special Tests Other Special Tests Special Tests + ASLR test B for decreased TA activation PT-OP-M Strength Start: 09/08/20 15:50 Freq: Status: Active Protocol: Document 09/08/20 15:50 [facility] (Rec: 09/08/20 15:54 [facility] [email or web address]) Trunk Strength Trunk Manual Muscle Testing Core Stabilization poor core stabilization with decrease activation of the transverse abdominal wall and pelvic floor, 3 finger width seperation of the linea alba proximal to umbilicus and 2 finger width distal to umbilicus PT-OP-T Assessment and Plan Start: 09/08/20 08:59 Freq: Status: Active Protocol: Document 03/22/21 11:21 [facility] (Rec: 03/22/21 11:31 [facility] [email or web address]) Physical Therapy Assessment Goals Majo is able to sustain a side plank for 30 seconds each side keeping good form Impairment Majo would like to be able to hold a side plank without loss of balance Skilled Nursing Goal (LTG) Majo is able to sustain a side plank for 30 seconds each side keeping in good form LTG Duration 6 weeks Majo would like to be able to complete 10 pushups with good form Impairment Decreased strength for pushups Short Term Goal (STG) Majo is able to complete 10 pushups with good form and her core stabilized. Excellent progress as plank position is much more stable now Decreased Pelvci floor endurance Impairment Decreased pelvic floor endurance Short Term Goal (STG) Majo is able to sustain a pelvic floor contraction for 10 seconds in supine GOAL MET STG Duration 4 weeks Materials Scientist Goal (LTG) Majo is no longer c/o pelvic pressure and heaviness with menstruation. GOAL MET LTG Duration 8 weeks Majo is unable to progress her exercise routine at home due to abdominal pain and weakness Impairment Majo is unable to progress her exercise routine due to weakness, pain Short Term Goal (STG) Majo is able to perform a TA facilitation in supine with marches without her pelvis rocking from side to side GOAL MET STG Duration 4 weeks Skilled Nursing Goal (LTG) Majo is able to perform standing dynamic stabilization exericse without a abdominal bulge and without any abdominal pain. GOAL MET LTG Duration 8 weeks Decreased strength of the transerse abdominal muscle Impairment Decreased strength of the Transverse abdominal muscle with diastasis Short Term Goal (STG) Majo is able to facilitate her TA in quadruped and sustain a contraction x 10 seconds for 10 reps GOAL MET STG Duration 4 weeks Materials Scientist Goal (LTG) Majo is able to demonstrate TA activation with sit-stand and with a squat to stand GOAL MET Assessment Summary Assessment Majo was seen today after working on her own since Dec 29. She continues to do really well with her stabilization exercises and core progression. She has been using her peloton at home for exercise. She denied any complaints of back or abdominal pain today. We reviewed form with higher level abdominal stabilization exercises today and Majo tolerated this well. She has been able to progress to plank and side plank positions. As Majo is increasing her difficulty with exercises she would like modifications of some of the exercises she is attempting so that she doesn't injure her back or strain her abdominal wall. I am happy to assist her again in 4-6 weeks with her higher level exercise program. She would like to recheck in 6 weeks after she has progressed her stabilization exercises at home.
--- NOTE | 2021-04-19 13:05 | PT.OTN ---
Current Diagnoses Separation of muscle (nontraumatic), other site (04/19/21) Muscle weakness (generalized) (04/19/21) Unspecified abdominal pain (04/19/21) Physical Therapy Treatment Note PT-OP-A Visit Information Start: 09/08/20 08:59 Freq: Status: Active Protocol: Document 04/19/21 12:06 [facility] (Rec: 04/19/21 12:20 [facility] [id number]) Out-Patient Physical Therapy Visit Information Visit Information Visit Type Treatment Note Visit Start Time 12:05 Visit Stop Time 12:55 Total Visit Minutes 45 Visit Number 11 PT-OP-B Current Condition Start: 09/08/20 08:59 Freq: Status: Active Protocol: Document 09/08/20 15:10 [facility] (Rec: 09/08/20 15:49 [facility] [email or web address]) Current Condition History of Current Condition Onset Date 2016 Current Complaints abdominal seperation ( diastasis recti) following 3 pregnancies History of Current Condition Majo is a 30 year old female who seeks PT consult due to abdominal seperation and weakness from her three pregnancies. She had 3 births in 28 months. Her youngest will be 1 year old in September 2020. She notes she wants to work out but when she tries to progress her exercises she has felt a pulling sensation across her abdominal wall. She feels she has limits to the exercises she can perform. Majo denies any symptoms of bladder leakage but does note she will experience pelvic pressure and heaviness with menstruation. 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 Jenny states she has to be careful with any exercises with her head below her heart. Treatment Goals Patient/Caregiver Goals Markell goals include improving core strength to properly lift her children uo and to be able to continue with a exercise routine. She would like to improve her abdominal strength without feeling abdominal pain and straining. Specifically she would like to be able to follow the barre blend routine from [place]. Current Functional Impairments (Reported) Functional Limitations- Recreation/ difficulty with lifting Hobbies activites, unable to continue her exercise routine due to abdominal straining and pain. PT-OP-C Subjective Start: 09/08/20 08:59 Freq: Status: Active Protocol: Document 04/19/21 12:06 [facility] (Rec: 04/19/21 12:20 [facility] [id number]) OP-PT Subjective Patient Comments Patient Comments pt reports she has been taking care of her kids and hasn't had a lot of time for her core exercises.. PT-OP-I Pelvic Floor Start: 09/08/20 08:59 Freq: Status: Active Protocol: Document 09/08/20 15:10 [facility] (Rec: 09/08/20 15:49 [facility] [email or web address]) Pelvic Floor Assessment Comments Pelvic Floor Comments The pelvic floor was assessed externally today and Majo has difficulty sustaining a pelvic floor contraction for more than a few seconds. PT-OP-J Posture/Palpation/Skin Start: 09/08/20 08:59 Freq: Status: Active Protocol: Document 09/08/20 15:10 [facility] (Rec: 09/08/20 15:49 [facility] [email or web address]) Palpation Assessment Location abdominal wall midline Palpation Location linea alba palpation for diastasis recti Palpation Details There is a 3 finger width diastasis seperation proximal to the umbilicus and 2 finger width seperation distal to the umbilicus. There is minimal bulging with trunk flexion and no hard end feel. PT-OP-L Special Tests Start: 09/08/20 08:59 Freq: Status: Active Protocol: Document 09/08/20 15:10 [facility] (Rec: 09/08/20 15:49 [facility] [email or web address]) Special Tests Other Special Tests Special Tests + ASLR test B for decreased TA activation PT-OP-M Strength Start: 09/08/20 15:50 Freq: Status: Active Protocol: Document 09/08/20 15:50 [facility] (Rec: 09/08/20 15:54 [facility] [email or web address]) Trunk Strength Trunk Manual Muscle Testing Core Stabilization poor core stabilization with decrease activation of the transverse abdominal wall and pelvic floor, 3 finger width seperation of the linea alba proximal to umbilicus and 2 finger width distal to umbilicus PT-OP-Q Treatments Start: 09/08/20 08:59 Freq: Status: Active Protocol: Document 03/22/21 11:21 [facility] (Rec: 03/22/21 11:31 [facility] [email or web address]) Therapeutic Exercises Supine Exercises reverse cruches starting from sitting Reps/Minutes x5 Comments pt educated in keeping core activated and segmenitally rolling one vertebra rolling like a ball Comments pt educated in keeping her core activated for this abdominal crunches progression Supine Exercise Name worked on progression of crunches Comments worked on abdominal crunches progression and reviewed this from last visit Level 2 lower abdominal stabilization Supine Exercise Name l Reps/Minutes x 10 Sidelying Exercises side planks Sidelying Exercise Name side planks Equipment Used used wall for stabilization Comments review of modification with side planks Other Exercises sumo squats Reps/Minutes x 10 Comments with hip ER as needed Manual Therapy Treatment Manual Techniques manual recheck of diastasis recti Type manual recheck of diastasis recti Comments pt is doing really well with abdominal stabiilzation exercses. No bulges felt at midline. There is a 1 finger width diastasis proximal to umbilicus and 2 finger width seperation at the umbilicus. I am not feeling any seperation distal to the umbilicus PT-OP-T Assessment and Plan Start: 09/08/20 08:59 Freq: Status: Active Protocol: Document 04/19/21 12:00 [facility] (Rec: 04/19/21 13:05 [facility] [email or web address]) Physical Therapy Assessment Goals Decreased Pelvci floor endurance Impairment Decreased pelvic floor endurance Short Term Goal (STG) Majo is able to sustain a pelvic floor contraction for 10 seconds in supine GOAL MET STG Duration 4 weeks Dairy Department Manager Goal (LTG) Majo is no longer c/o pelvic pressure and heaviness with menstruation. GOAL MET LTG Duration 8 weeks Majo is unable to progress her exercise routine at home due to abdominal pain and weakness Impairment Majo is unable to progress her exercise routine due to weakness, pain Short Term Goal (STG) Majo is able to perform a TA facilitation in supine with marches without her pelvis rocking from side to side GOAL MET STG Duration 4 weeks Dairy Department Manager Goal (LTG) Majo is able to perform standing dynamic stabilization exericse without a abdominal bulge and without any abdominal pain. GOAL MET LTG Duration 8 weeks Decreased strength of the transerse abdominal muscle Impairment Decreased strength of the Transverse abdominal muscle with diastasis Short Term Goal (STG) Majo is able to facilitate her TA in quadruped and sustain a contraction x 10 seconds for 10 reps GOAL MET STG Duration 4 weeks Mcc Goal (LTG) Majo is able to demonstrate TA activation with sit-stand and with a squat to stand GOAL MET Assessment Summary Assessment Majo returns to PT today after a month of working on her own with stabilization. Her is deployed at this time for 5 more months. She reports it has been difficult this past month to work on her exercises. All exercises were reviewed today and I also focused on stretching of the lumbar spine as Majo was tight. She has been sleeping on the couch this past week with out of town guests. Majo continues to do really well with her core stabilization. Some of the higher level exercises that she wants to be able to do were modified today to avoid strain. She would like to be seen again in one month to review and progress dynamic exercises. Physical Therapy Plan Frequency and Duration Frequency of Treatment 1x/Week Duration of Treatment 8 Plan of Care Start Date 04/25/21 Plan of Care End Date 06/25/21 Therapeutic Interventions Therapeutic Interventions Home Exercise Program, Neuromuscular Re-education, Patient/Caregiver Education, Self-Care/Home Management, Therapeutic Exercises Next Visit Focus/Plan Next Note Type Treatment Note Next Visit Plan review core stabilization exercises and modify if needed
--- NOTE | 2021-04-19 13:06 | PT.OPPOC ---
Physical, Occupational & Speech Therapy At [facility] Current Diagnoses Separation of muscle (nontraumatic), other site (04/19/21) Muscle weakness (generalized) (04/19/21) Unspecified abdominal pain (04/19/21) Visit Care Team Role Provider Type Noreen Grey MD Attending Provider Physician Family Provider Primary Care Provider Referring Provider Specialty: Family Practice Address: [address] [place] [address], [facility] [place], [address] Email: [email or web address] Plan Of Care PT-OP-T Assessment and Plan Start: 09/08/20 08:59 Freq: Status: Active Protocol: Document 04/19/21 12:00 [facility] (Rec: 04/19/21 13:05 [facility] [email or web address]) Physical Therapy Assessment Goals Decreased Pelvci floor endurance Impairment Decreased pelvic floor endurance Short Term Goal (STG) Majo is able to sustain a pelvic floor contraction for 10 seconds in supine GOAL MET STG Duration 4 weeks House Moving Supervisor Goal (LTG) Majo is no longer c/o pelvic pressure and heaviness with menstruation. GOAL MET LTG Duration 8 weeks Majo is unable to progress her exercise routine at home due to abdominal pain and weakness Impairment Majo is unable to progress her exercise routine due to weakness, pain Short Term Goal (STG) Majo is able to perform a TA facilitation in supine with marches without her pelvis rocking from side to side GOAL MET STG Duration 4 weeks House Moving Supervisor Goal (LTG) Majo is able to perform standing dynamic stabilization exercise without a abdominal bulge and without any abdominal pain. GOAL MET LTG Duration 8 weeks Decreased strength of the transerse abdominal muscle Impairment Decreased strength of the Transverse abdominal muscle with diastasis Short Term Goal (STG) Majo is able to facilitate her TA in quadruped and sustain a contraction x 10 seconds for 10 reps GOAL MET STG Duration 4 weeks Skilled Nursing Goal (LTG) Majo is able to demonstrate TA activation with sit-stand and with a squat to stand GOAL MET Assessment Summary Assessment Majo returns to PT today after a month of working on her own with stabilization. Her is deployed at this time for 5 more months. She reports it has been difficult this past month to work on her exercises. All exercises were reviewed today and I also focused on stretching of the lumbar spine as Majo was tight. She has been sleeping on the couch this past week with out of town guests. Majo continues to do really well with her core stabilization. Some of the higher level exercises that she wants to be able to do were modified today to avoid strain. She would like to be seen again in one month to review and progress dynamic exercises. Physical Therapy Plan Frequency and Duration Frequency of Treatment 1x/Week Duration of Treatment 8 Plan of Care Start Date 04/25/21 Plan of Care End Date 06/25/21 Therapeutic Interventions Therapeutic Interventions Home Exercise Program, Neuromuscular Re-education, Patient/Caregiver Education, Self-Care/Home Management, Therapeutic Exercises Next Visit Focus/Plan Next Note Type Treatment Note Next Visit Plan review core stabilization exercises and modify if needed Plan of Care Dates Plan of Care Start Date 04/25/21 Plan of Care End Date 06/25/21 Electronically Signed by: Ewa Nance, PT 04/19/21 [id number] Please Sign and Return: I have reviewed this Plan of Care and certify that the skilled therapy services above are required to meet the patient?s needs. Physician Signature Date Printed Name and Credentials Clinical Instructor Signature Printed Name and Credentials
--- NOTE | 2021-08-09 11:15 | PT.OPDS ---
Current Diagnoses Separation of muscle (nontraumatic), other site (04/19/21) Muscle weakness (generalized) (04/19/21) Unspecified abdominal pain (04/19/21) Visit Care Team Role Provider Type Noreen Grey MD Attending Provider Physician Family Provider Primary Care Provider Referring Provider Specialty: Family Practice Address: [address] [place] [address], [facility] Email: [email or web address] Visit Number Visit Number 11 Discharge Summary PT-OP-B Current Condition Start: 09/08/20 08:59 Freq: Status: Active Protocol: Document 09/08/20 15:10 [facility] (Rec: 09/08/20 15:49 [facility] [email or web address]) Current Condition History of Current Condition Onset Date 2016 Current Complaints abdominal seperation ( diastasis recti) following 3 pregnancies History of Current Condition Majo is a 30 year old female who seeks PT consult due to abdominal seperation and weakness from her three pregnancies. She had 3 births in 28 months. Her youngest will be 1 year old in September 2020. She notes she wants to work out but when she tries to progress her exercises she has felt a pulling sensation across her abdominal wall. She feels she has limits to the exercises she can perform. Majo denies any symptoms of bladder leakage but does note she will experience pelvic pressure and heaviness with menstruation. 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 Jenny states she has to be careful with any exercises with her head below her heart. Treatment Goals Patient/Caregiver Goals Markell goals include improving core strength to properly lift her children uo and to be able to continue with a exercise routine. She would like to improve her abdominal strength without feeling abdominal pain and straining. Specifically she would like to be able to follow the barre blend routine from [employer]. Current Functional Impairments (Reported) Functional Limitations- Recreation/ difficulty with lifting Hobbies activites, unable to continue her exercise routine due to abdominal straining and pain. PT-OP-C Subjective Start: 09/08/20 08:59 Freq: Status: Active Protocol: Document 04/19/21 12:06 [facility] (Rec: 04/19/21 12:20 [facility] [id number]) OP-PT Subjective Patient Comments Patient Comments pt reports she has been taking care of her kids and hasn't had a lot of time for her core exercises.. PT-OP-I Pelvic Floor Start: 09/08/20 08:59 Freq: Status: Active Protocol: Document 09/08/20 15:10 [facility] (Rec: 09/08/20 15:49 [facility] [email or web address]) Pelvic Floor Assessment Comments Pelvic Floor Comments The pelvic floor was assessed externally today and Majo has difficulty sustaining a pelvic floor contraction for more than a few seconds. PT-OP-J Posture/Palpation/Skin Start: 09/08/20 08:59 Freq: Status: Active Protocol: Document 09/08/20 15:10 [facility] (Rec: 09/08/20 15:49 [facility] [email or web address]) Palpation Assessment Location abdominal wall midline Palpation Location linea alba palpation for diastasis recti Palpation Details There is a 3 finger width diastasis seperation proximal to the umbilicus and 2 finger width seperation distal to the umbilicus. There is minimal bulging with trunk flexion and no hard end feel. PT-OP-L Special Tests Start: 09/08/20 08:59 Freq: Status: Active Protocol: Document 09/08/20 15:10 [facility] (Rec: 09/08/20 15:49 [facility] [email or web address]) Special Tests Other Special Tests Special Tests + ASLR test B for decreased TA activation PT-OP-M Strength Start: 09/08/20 15:50 Freq: Status: Active Protocol: Document 09/08/20 15:50 [facility] (Rec: 09/08/20 15:54 [facility] [email or web address]) Trunk Strength Trunk Manual Muscle Testing Core Stabilization poor core stabilization with decrease activation of the transverse abdominal wall and pelvic floor, 3 finger width seperation of the linea alba proximal to umbilicus and 2 finger width distal to umbilicus PT-OP-T Assessment and Plan Start: 09/08/20 08:59 Freq: Status: Active Protocol: Document 08/09/21 11:13 [facility] (Rec: 08/09/21 11:15 [facility] [email or web address]) Physical Therapy Assessment Goals Majo would like to be able to complete 10 pushups with good form Impairment Decreased strength for pushups Short Term Goal (STG) Majo is able to complete 10 pushups with good form and her core stabilized. Excellent progress as plank position is much more stable now Majo is unable to progress her exercise routine at home due to abdominal pain and weakness Impairment Majo is unable to progress her exercise routine due to weakness, pain Short Term Goal (STG) Majo is able to perform a TA facilitation in supine with marches without her pelvis rocking from side to side GOAL MET STG Duration 4 weeks Ad Terminal Makeup Operator Goal (LTG) Majo is able to perform standing dynamic stabilization exericse without a abdominal bulge and without any abdominal pain. GOAL MET LTG Duration 8 weeks Decreased strength of the transerse abdominal muscle Impairment Decreased strength of the Transverse abdominal muscle with diastasis Short Term Goal (STG) Majo is able to facilitate her TA in quadruped and sustain a contraction x 10 seconds for 10 reps GOAL MET STG Duration 4 weeks Detention Goal (LTG) Majo is able to demonstrate TA activation with sit-stand and with a squat to stand GOAL MET Progress Towards Goals Progress Towards Goals Progressing Toward Goals Assessment Summary Assessment Majo was last seen in PT after a month of working on her own with stabilization . Her is deployed at this time for 5 more months. She reports it has been difficult this past month to work on her exercises. All exercises were reviewed today and I also focused on stretching of the lumbar spine as Majo was tight. She has been sleeping on the couch this past week with out of town guests. Majo continues to do really well with her core stabilization. Some of the higher level exercises that she wants to be able to do were modified today to avoid strain. She had wanted to be seen again in a month but wasn't able to keep her PT appt. At this time she is I with her HEP. I will discharge her and am happy to resume care should she want to initiate PT again. Physical Therapy Plan Discharge Physical Therapy Discharge Reasons Goals Met
== END 2021-08-09 11:23 | disposition home or self-care (01) ==
LOC: PHYS 12:00
PROVIDERS: Family Provider Family Medicine; PCP Family Medicine; Referring Provider Family Medicine; Visit Provider Family Medicine
DX: M62.08 Separation of muscle (nontraumatic), other site (principal); R10.9 Unspecified abdominal pain; M62.81 Muscle weakness (generalized)
CPT/HCPCS: 97110; 97112; 97161

== ENCOUNTER → 2021-08-08 14:55 | Outpatient (CLI) | payer OTHER, SELFPAY ==
[2021-08-08 15:39] LABS: Add Manual Diff / Slide Review NO; Basophils Absolute Auto 0 /uL (0-100); Basophils Percent Auto 0.5 % (0-2); Eosinophils Absolute Auto 100 /uL (0-450); Eosinophils Percent Auto 1.8 % (2-4); Hematocrit 36.7 % (36-46); Hemoglobin 12.4 g/dL (12.0-16.0); Lymphocytes Absolute Auto 1700 /uL (1100-4500); Lymphocytes Percent Auto 30.8 % (25-40); Mean Corpuscular HGB Conc 33.9 % (30-36); Mean Corpuscular Hemoglobin 29.7 PG (26-34); Mean Corpuscular Volume 87.6 fL (80-100); Monocytes Absolute Auto 400 /uL (0-900); Neutrophils Absolute Auto 3300 /uL (1500-7000); Neutrophils Percent Auto 59.9 % (50-75); Platelet Count 231 X10^3/uL (150-400); Red Blood Cell Count 4.19 X10^6/uL (4.0-5.2); Red Cell Distribution Width 13.3 % (11.6-14.8); White Blood Cell Count 5.5 X10^3/uL (4.5-11.0)
[2021-08-08 15:42] LABS: Alanine Aminotransferase 18 IU/L (<35); Albumin 4.5 g/dL (3.5-5.0); Albumin Globulin Ratio 1.6 (1.0-2.8); Alkaline Phosphatase 48 U/L (38-126); Aspartate Aminotransferase 25 IU/L (14-36); BUN Creatinine Ratio 21.3 (6-22); Bilirubin Total 0.4 mg/dL (0.2-1.3); Blood Urea Nitrogen 16 mg/dL (7-17); C-Reactive Protein Quant 0.6 mg/dL (<1.0); Calcium 8.7 mg/dL (8.4-10.2); Carbon Dioxide 28 mmol/L (22-32); Chloride 107 mmol/L (98-107); Estimated Glomerular Filt Rate > 60.0 mL/min (>60); Globulin 2.8 g/dL (1.7-4.1); Glucose 93 mg/dL (70-100); HEMOLYSIS < 15 (0-50); Potassium 3.9 mmol/L (3.4-5.1); Sodium 141 mmol/L (137-145); Total Protein 7.3 g/dL (6.3-8.2)
[2021-08-08 16:31] LABS: TSH w/ Reflex to FT4 1.41 uIU/mL (0.47-4.68)
[2021-08-08 19:18] LABS: Erythrocyte Sedimentation Rate 9 MM/HR (0-20)
[2021-08-09 18:42] LABS: Deamidated Gliadin Ab IgA 3 units (0-19); Deamidated Gliadin Ab IgG 1 units (0-19); Immunoglobulin A,Qn 82 mg/dL (87-352); t-Transglutaminase IgA <2 U/mL (0-3)
== END ==
PROVIDERS: Family Provider Family Medicine; PCP Family Medicine; Referring Provider Family Medicine; Visit Provider Family Medicine
DX: R19.7 Diarrhea, unspecified (principal)
CPT/HCPCS: 36415; 80053; 82784; 83516; 84443; 85025; 85651; 86140

== ENCOUNTER → 2021-08-30 13:25 | Outpatient (CLI) | payer OTHER, SELFPAY ==
--- NOTE | 2021-08-30 13:27 | DIET.PN1 ---
Dietary Progress Note Assessment: 31y F c hx AVNRT attending RD visit for help analyzing if GI sx are food related on referral of PCP. Pt has always had some constipation throughout life, is mindful on having good PO fluid intake, so never has been a big bother. Pt doesn't do soy, never tolerated it, and had previous projectile vomiting with dairy intake for a short time in college. 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 In June 2020 a few weeks after moving to [place], pt visited ED at with sx of bloating, diarrhea, fatigue, headaches, reduced urine output with reduced eGFR, elevated Cr and elevated K+. Pt and her dad both were having sx of diarrhea-they were only two drinking tap water at their rental home. City official came out, tested water which came back as contaminated. Official decision was water would be safe to drink only if filtered, something wrong with water supply/pipes in her neighborhood. Pt compliant with water filtration, no sx for 6mo, but starting in January 2021 pts sx returned with nausea, bloating, stomach pain, and diarrhea which continue to date. Pt was tested for celiac-negative, and followed a low-fodmap diet with no resolving of sx. Pt has used extensive food journals to try to match sx to food exposures without results. Pt follows a non-restrictive version of Whole30 eating with no intake artificial sugars or sugar alcohols. Pt has 1-2 etoh equivalents each year. Pt exercises regularly on [employer] bio bike and meditates nightly before bed which helps her sleep quality. RD Impression: Pts GI sx manifested rather suddenly after exposure to contaminated drinking water c sx common to SIBO. A variety of food testing and elimination type diets not improving sx. Pt would benefit from testing for SIBO (small intestine bacterial overgrowth) as this can develop after drinking contaminated water. Testing may be done by PCP or GI specialist. RD can help pt employ supportive nutrition plan once definitive dx found. Electronically Signed by: Linsey Johnson 08/30/21 13:27 Clinical Diet[address] [address]
== END ==
PROVIDERS: Family Provider Family Medicine; PCP Family Medicine; Referring Provider Family Medicine; Visit Provider Family Medicine
DX: K59.00 Constipation, unspecified (principal); R11.0 Nausea; R14.0 Abdominal distension (gaseous); R19.7 Diarrhea, unspecified; Z71.3 Dietary counseling and surveillance
CPT/HCPCS: 97802

== ENCOUNTER → 2021-09-05 15:39 | Outpatient (CLI) | payer OTHER, SELFPAY ==
[2021-09-05 16:52] LABS: BUN Creatinine Ratio 20.8 (6-22); Blood Urea Nitrogen 16 mg/dL (7-17); Calcium 8.8 mg/dL (8.4-10.2); Carbon Dioxide 27 mmol/L (22-32); Chloride 106 mmol/L (98-107); Estimated Glomerular Filt Rate > 60.0 mL/min (>60); Glucose 93 mg/dL (70-100); HEMOLYSIS < 15 (0-50); Potassium 3.8 mmol/L (3.4-5.1); Sodium 141 mmol/L (137-145)
== END ==
PROVIDERS: Family Provider Family Medicine; PCP Family Medicine; Referring Provider Family Medicine; Visit Provider Family Medicine
DX: R79.89 Other specified abnormal findings of blood chemistry (principal)
CPT/HCPCS: 36415; 80048

== ENCOUNTER 2021-11-05 18:13 | Emergency (ER) | payer OTHER, SELFPAY ==
[2021-11-05 18:15] VITALS: BP 123/68; PULSE 93; RESP 16; TEMP 36.3; O2SAT 100; BMI 29.3
--- NOTE | 2021-11-05 19:16 | DI.RAD.S_ITS ---
PROCEDURE: XR CHEST 1V INDICATIONS: chest pain TECHNIQUE: One view of the chest was acquired. COMPARISON: None. FINDINGS: Surgical changes and devices: None. Lungs and pleura: Lungs are clear. No pleural effusions or pneumothorax. Mediastinum: Mediastinal contours appear normal. Heart size is normal. Bones and chest wall: No suspicious bony lesions. Overlying soft tissues appear unremarkable. IMPRESSION: No acute cardiopulmonary process demonstrated radiographically. Dictated by: Andrzej Pandey M.D. on 11/05/2021 at 20:34 Approved by: Andrzej Pandey M.D. on 11/05/2021 at 20:34
[2021-11-05 19:33] LABS: Add Manual Diff / Slide Review NO; Basophils Absolute Auto 0 /uL (0-100); Basophils Percent Auto 0.3 % (0-2); Eosinophils Absolute Auto 100 /uL (0-450); Eosinophils Percent Auto 1.7 % (2-4); Hematocrit 33.4 % (36-46); Hemoglobin 11.2 g/dL (12.0-16.0); Lymphocytes Absolute Auto 1200 /uL (1100-4500); Lymphocytes Percent Auto 26.6 % (25-40); Mean Corpuscular HGB Conc 33.6 % (30-36); Mean Corpuscular Hemoglobin 28.9 PG (26-34); Monocytes Absolute Auto 300 /uL (0-900); Monocytes Percent Auto 6.8 % (3-14); Neutrophils Absolute Auto 3000 /uL (1500-7000); Neutrophils Percent Auto 64.6 % (50-75); Platelet Count 191 X10^3/uL (150-400); Red Blood Cell Count 3.88 X10^6/uL (4.0-5.2); Red Cell Distribution Width 13.4 % (11.6-14.8); White Blood Cell Count 4.6 X10^3/uL (4.5-11.0)
[2021-11-05 19:43] LABS: Alanine Aminotransferase 9 IU/L (<35); Albumin Globulin Ratio 1.5 (1.0-2.8); Alkaline Phosphatase 46 U/L (38-126); Aspartate Aminotransferase 19 IU/L (14-36); Bilirubin Total 0.3 mg/dL (0.2-1.3); Blood Urea Nitrogen 18 mg/dL (7-17); Calcium 8.5 mg/dL (8.4-10.2); Carbon Dioxide 30 mmol/L (22-32); Chloride 105 mmol/L (98-107); Creatine Kinase 68 U/L (30-135); Estimated Glomerular Filt Rate > 60.0 mL/min (>60); Globulin 2.7 g/dL (1.7-4.1); Glucose 100 mg/dL (70-100); HEMOLYSIS < 15 (0-50); Lipase 170 U/L (23-300); Magnesium 1.7 mg/dL (1.6-2.3); Potassium 3.9 mmol/L (3.4-5.1); Sodium 138 mmol/L (137-145); Total Protein 6.7 g/dL (6.3-8.2)
[2021-11-05 19:54] LABS: Troponin I < 0.012 ng/mL (0.01-0.034)
[2021-11-05 20:37] VITALS: PULSE 72; O2SAT 99
[2021-11-05 21:00] VITALS: PULSE 77; RESP 20; O2SAT 98
[2021-11-05 21:30] VITALS: PULSE 70; O2SAT 99
[2021-11-05 21:58] VITALS: BP 109/72; PULSE 71; O2SAT 99
--- NOTE | 2021-11-05 21:58 | ED_ITS ---
HPI - Chest Pain General Chief Complaint: Chest Pain Stated Complaint: Chest Pain, Booster Last Night, HX Heart Condition Time Seen by Provider: 11/05/21 21:58 History of Present Illness HPI narrative: 31-year-old woman with a history of AV jose miguel reentry tachycardia with episodes of to 3 times a week sometimes as long as 20 minutes and associated with dyspnea and hypotension and other times lasting seconds only presents with left sided midclavicular line musculoskeletal type chest pain after receiving her 3rd Moderna COVID shot in her left arm yesterday. After the shot she noted some minor irritation general malaise all of which seems to be improving nicely. Her was concerned with the chest pain in light of her reentry tachycardia history. She describes no fevers or chills, cough, vomiting, diarrhea abdominal pain, no recent tachycardic episodes, no headaches, orthopnea, dyspnea, lower extremity edema. Related Data Home Medications Medication Instructions Recorded Confirmed No Known Home Medications 07/14/20 09/06/21 Allergies Allergy/AdvReac Type Severity Reaction Status Date / Time amoxicillin [From Augmentin] Allergy Rash Verified 09/06/21 11:10 clavulanic acid Allergy Rash Verified 09/06/21 11:10 [From Augmentin] Review of Systems Review of Systems Narrative: Remainder of complete review of systems is otherwise unremarkable except for that included in the HPI. Patient History Medical History AVNRT (AV jose miguel re-entry tachycardia) Bradycardia Preeclampsia Surgical History H/O tympanostomy History of cardiac radiofrequency ablation Family History Grandmother Diabetes mellitus Heart disease Father Cancer Grandfather Cancer Social History marital status: household members: spouse and children Smoking Status: Never smoker alcohol intake: current substance use type: does not use Smoking Status: Never smoker Substance Use Type: does not use Exam Narrative Exam Narrative: General: Healthy appearing, in no acute distress. Able to give a complete and coherent history. Well-nourished well-developed HEENT: Moist mucous membranes, normal sclera with reactive pupils, Respiratory: Lungs are clear to auscultation, no wheezing no rales no rhonchi. Full and symmetrical air movement Cardiac: Regular rate and rhythm no murmurs no bruits Chest: Minor tenderness midclavicular line left side over ribs 4 and 5 without skin changes, erythema or other palpable abnormalities Abdomen: Soft, nontender, good bowel tones, no flank pain Skin: Warm and dry, no rashes Neurologic: Grossly neurologically intact with no obvious asymmetries or abno rmalities Extremities: No trauma, well perfused Psych: Cooperative, appropriate insight and affect Initial Vital Signs Initial Vital Signs: Vital Signs Temperature 97.3 F L 11/05/21 18:15 Pulse Rate 93 H 11/05/21 18:15 Respiratory Rate 16 11/05/21 18:15 Blood Pressure 123/68 11/05/21 18:15 Pulse Oximetry 100 11/05/21 18:15 Course Orders Ordered: ED Orders 11/05/21 18:20 EKG-12 Lead Stat 11/05/21 19:16 XR chest 1V Stat EKG-12 Lead Stat 11/05/21 19:25 Complete Blood Count AUTO DIFF Stat Comprehensive Metabolic Panel Stat Lipase Stat Magnesium Stat Troponin & CK Cardiac Panel Stat Vital Signs Vital signs: Vital Signs - 8 hr 11/05/21 18:15 11/05/21 20:37 11/05/21 21:00 Temperature 97.3 F L Pulse Rate 93 H 72 77 Respiratory Rate 16 20 Blood Pressure 123/68 Pulse Oximetry 100 99 98 11/05/21 21:30 Temperature Pulse Rate 70 Respiratory Rate Blood Pressure Pulse Oximetry 99 MDM - Chest Pain Lab Data Result diagrams: 11/05/21 19:25 11/05/21 19:25 Labs: Lab Results 11/05/21 11/05/21 Range/Units 19:25 19:25 WBC 4.6 (4.5-11.0) X10^3/uL RBC 3.88 L (4.0-5.2) X10^6/uL Hgb 11.2 L (12.0-16.0) g/dL Hct 33.4 L (36-46) % MCV 86.0 (80-100) fL MCH 28.9 (26-34) PG MCHC 33.6 (30-36) % RDW 13.4 (11.6-14.8) % Plt Count 191 (150-400) X10^3/uL Neut % (Auto) 64.6 (50-75) % Lymph % (Auto) 26.6 (25-40) % Bracken % (Auto) 6.8 (3-14) % Eos % (Auto) 1.7 L (2-4) % Baso % (Auto) 0.3 (0-2) % Neut # (Auto) 3000 (3700-3337) /uL Lymph # (Auto) 1200 (3709-3405) /uL Bracken # (Auto) 300 (0-900) /uL Eos # (Auto) 100 (0-450) /uL Baso # (Auto) 0 (0-100) /uL Sodium 138 (137-145) mmol/L Potassium 3.9 (3.4-5.1) mmol/L Chloride 105 (98-107) mmol/L Carbon Dioxide 30 (22-32) mmol/L BUN 18 H (7-17) mg/dL Creatinine 0.82 (0.52-1.04) mg/dL Estimated GFR > 60.0 (>60) mL/min BUN/Creatinine Ratio 22.0 (6-22) Glucose 100 (70-100) mg/dL Calcium 8.5 (8.4-10.2) mg/dL Magnesium 1.7 (1.6-2.3) mg/dL Total Bilirubin 0.3 (0.2-1.3) mg/dL AST 19 (14-36) IU/L ALT 9 (<35) IU/L Alkaline Phosphatase 46 (38-126) U/L Total Creatine Kinase 68 (30-135) U/L CK-MB (CK-2) TNP CK-MB (CK-2) Rel Index TNP Troponin I < 0.012 (0.01-0.034) ng/mL Total Protein 6.7 (6.3-8.2) g/dL Albumin 4.0 (3.5-5.0) g/dL Globulin 2.7 (1.7-4.1) g/dL Albumin/Globulin Ratio 1.5 (1.0-2.8) Lipase 170 (23-300) U/L MDM Narrative Medical decision making narrative: 31-year-old woman with minor chest tenderness same side as her Moderna vaccine looking for reassurance with a history of reentry node tachycardia. Labs are reassuring EKG is within normal limits. She has been in the emergency department now for 3-1/2 hours and telemetry while in the part min has been unremarkable. Reassurance was given. Questions answered. She is safe for home discharge Discharge Plan Departure Patient Disposition: Home Clinical Impression: Atypical chest pain Instructions: DI for Atypical Chest Pain Activity Restrictions/Additional Instructions: Thank you for coming in today Your workup was entirely unremarkable. There is no evidence of cardiac issues, infection, lung abnormalities or breast abnormalities. I suspect that the pain you are experiencing is actually related to the COVID shot yesterday. Thank you very much for being fully vaccinated. If you find that symptoms worsen or you develop new findings, please feel free to return to the emergency department Prescriptions: No Action No Known Home Medications 0RF Referrals: Noreen Grey MD [Primary Care Provider] -
== END 2021-11-05 22:21 | disposition home or self-care (01) ==
PROVIDERS: Emergency Provider Emergency Medicine; Family Provider Family Medicine; PCP Family Medicine
DX: R07.89 Other chest pain (principal); R06.00 Dyspnea, unspecified
CPT/HCPCS: 36415; 71045; 80053; 82550; 83690; 83735; 84484; 85025; 93005; 93010; 99283; 99284

== ENCOUNTER → 2021-11-23 11:23 | Outpatient (CLI) | payer OTHER, SELFPAY ==
[2021-11-23 12:10] LABS: COVID19 -Nasal RAPID Negative (Negative)
== END ==
PROVIDERS: Family Provider Family Medicine; PCP Family Medicine; Visit Provider Nurse Practitioner Family
DX: Z20.822 Contact with and (suspected) exposure to COVID-19 (principal)
CPT/HCPCS: 87635

== ENCOUNTER → 2022-05-12 07:37 | Outpatient (CLI) | payer OTHER, SELFPAY ==
--- NOTE | 2022-05-12 07:39 | DI.RAD.S_ITS ---
PROCEDURE: XR FOOT LT MIN 3V INDICATIONS: Left foot pain TECHNIQUE: 3 views of the foot were acquired. COMPARISON: None. FINDINGS: Bones: No fractures or dislocations. No suspicious bony lesions. Soft tissues: No tibiotalar joint effusion. Achilles tendon appears normal. IMPRESSION: Unremarkable left foot radiographs Approved by: Jason Ruelas M.D. on 05/12/2022 at 9:53
== END ==
PROVIDERS: Family Provider Family Medicine; PCP Family Medicine; Referring Provider Nurse Practitioner Family; Visit Provider Nurse Practitioner Family
DX: M79.672 Pain in left foot (principal)
CPT/HCPCS: 73630